=== PATIENT | male | born 1945 | race Hispanic/Latino ===

== ENCOUNTER 2017-07-10 09:00 | Emergency (ER) | payer MEDICARE, MEDICAID | END 2017-07-10 09:51 | disposition home or self-care (01) | LOC: ERS 09:00 | DX: E11.9 Type 2 diabetes mellitus without complications (principal); I10 Essential (primary) hypertension; F32.9 Major depressive disorder, single episode, unspecified | CPT/HCPCS: 36416; 99283 ==

== ENCOUNTER 2018-07-24 14:32 | Outpatient (CLI) | payer MEDICARE, MEDICAID ==
--- NOTE | 2018-07-24 18:22 | RAD ---
LEFT KNEE RADIOGRAPHS FOUR VIEWS: 07/24/18 PROVIDED CLINICAL HISTORY: Osteoarthritis. FINDINGS: No comparisons. Tricompartmental osteophyte formation is noted with medial femorotibial and patellofemoral joint spac e narrowing. No evidence for fracture. Alignment appears anatomic. There is as somewhat poorly define d lucent focus involving the posterior aspect of the proximal fibular shaft. Vascular calcifications are seen. IMPRESSION: 1. Degenerative changes are seen involving the left knee. 2. Lucent focus involving the proximal fibula, incompletely characterized on the basis of this s tudy. Correlation with whole body bone scan recommended. POS: MARY
--- NOTE | 2018-07-24 19:20 | RAD ---
RIGHT KNEE RADIOGRAPHS FOUR VIEWS 07/24/18 PROVIDED CLINICAL HISTORY: Right knee pain. FINDINGS: No evidence for fracture or other acute osseous abnormality. Minimal osteophyte formation is seen. Al ignment appears anatomic. Joint spaces appear preserved. Vascular calcifications are noted. IMPRESSION: Minimal degenerative change. POS: MARY
== END 2018-07-24 14:33 | disposition home or self-care (01) ==
LOC: BICRAD 14:32
PROVIDERS: ATTEND Family Medicine
DX: M15.8 Other polyosteoarthritis (principal)

== ENCOUNTER 2019-02-22 10:55 | Outpatient (CLI) | payer MEDICARE, MEDICAID ==
--- NOTE | 2019-02-22 12:03 | RAD ---
2 views lumbar spine: 02/22/2019 COMPARISON: 01/03/2016 HISTORY: Degenerative joint disease FINDINGS: There is severe multilevel disc space narrowing throughout the lumbar spine with prominent right and left lateral osteophyte formation throughout the lumbar spine, most prominent at L3-4 and L2-3. The lateral exam demonstrates prominent multilevel facet hypertrophy throughout the lumbar spin e as well as multilevel prominent disc space narrowing, degenerative endplate change, and anterior osteophyte formation. No acute fracture is evident. IMPRESSION: Severe multilevel degenerative disc disease. No acute fracture.
--- NOTE | 2019-02-22 12:07 | RAD ---
2 views right hip: 02/22/2019 COMPARISON: None HISTORY: Degenerative joint disease, pain FINDINGS: There is severe degenerative change involving the right hip with complete loss of joint spa ce height as well as flattening and abnormal sclerosis of the femoral head. There is prominent subchondral geode formation involving the acetabular roof as well as the femoral head. No acute fract ure or dislocation. Vascular calcification noted within the medial proximal right thigh. IMPRESSION: Severe degenerative change involving the right hip.
--- NOTE | 2019-02-22 12:09 | RAD ---
2 views left hip: 02/22/2019 COMPARISON: None HISTORY: Degenerative joint disease, pain FINDINGS: There is prominent superior joint space narrowing with subchondral sclerosis of the acetabu lar roof. There is lateral acetabular osteophyte formation and lateral osteophyte formation of the femoral head. There is associated subchondral geode formation of the acetabular roof and the left fem oral head. No displaced fracture or evidence of dislocation is seen. IMPRESSION: Prominent degenerative joint disease of left hip. No acute fracture or dislocation.
== END 2019-02-22 10:56 | disposition home or self-care (01) ==
LOC: BICRAD 10:55
PROVIDERS: ATTEND Internal Medicine Nephrology
DX: M16.0 Bilateral primary osteoarthritis of hip (principal); M47.816 Spondylosis without myelopathy or radiculopathy, lumbar region; M51.36 Other intervertebral disc degeneration, lumbar region
CPT/HCPCS: 72100

== ENCOUNTER 2019-04-22 08:00 | Inpatient (IN) | payer MEDICARE, MEDICAID ==
[2019-04-22 08:31] VITALS: BMI 30.5
--- NOTE | 2019-04-29 08:18 | HP ---
HISTORY OF PRESENT ILLNESS: The patient is a 73-year-old male with a long history of progressive degenerative arthritis of both hips, right greater than left, which became worse over the past several years, especially the past 3 months. He has had progressive pain despite rest, restriction of activities, and pain medication. The pain is now interfering with day-to-day activities including walking, getting dressed, and sleeping. He has had no relief with Aleve and Tylenol. PAST MEDICAL HISTORY: The patient has history of hypertension and diabetes. Also has degenerative arthritis of his left knee and lumbar spine. He has had a previous umbilical hernia repair. He is followed by Dr. Yong Linda. CURRENT MEDICATIONS: Include; 1. Janumet. 2. Lisinopril. 3. Flomax. 4. Finasteride. ALLERGIES: HE HAS NO KNOWN ALLERGIES. FAMILY HISTORY: Otherwise, unremarkable. SOCIAL HISTORY: He does live by himself. Otherwise, unremarkable. REVIEW OF SYSTEMS: Otherwise, unremarkable. PHYSICAL EXAMINATION: GENERAL: Reveals a healthy male. HEENT: Unremarkable. NECK: Supple. CHEST: Clear. HEART: Regular rate and rhythm. ABDOMEN: Soft and nontender. RECTAL: Deferred. GENITAL: Deferred. EXTREMITIES: Pertinent findings related to his hips. His leg lengths are equal. There is tenderness on the anterior hip, the right greater than left. Antalgic gait. There is decreased range of motion of both hips and groin pain with internal rotation, right greater than left. Neurovascular exam is intact. There are no definite pulses. He has good capillary refills. DIAGNOSTIC STUDIES: X-rays of this of both hips reveals severe degenerative arthritis of both hips, right greater than left with no joint space remaining. X-rays of his lumbar spine reveal diffuse degenerative changes. X-rays of his left knee reveal severe degenerative arthritis. IMPRESSION: 1. Degenerative arthritis, both hips, right greater than left. 2. Lumbar spondylosis. 3. Degenerative arthritis, left knee. 4. Adult-onset diabetes. 5. Hypertension. PLAN: Right total hip replacement. The nature of the surgery, length of recovery, and potential complications such as infection, loss of motion, incomplete relief, neurovascular injury, thromboembolic phenomena, leg-length discrepancy, possible transfusion, and need for revision have been discussed in detail. Job ID: [id number]
[2019-05-03] MEDS ORDERED: Sodium Chloride 0.9% 100 ML ONE (05:58)
[2019-05-03] MEDS ORDERED: Tranexamic Acid 1,000 MG/10 ML VIAL ONE ×2 (05:58→09:16)
[2019-05-03] MEDS ORDERED: Vancomycin HCl 1.5 GM in Sodium Chloride 0.9% 250 ML 300 ML IVPB SCH ×2 (06:15→18:00)
[2019-05-03] MEDS ORDERED: Fentanyl 100 MCG/2 ML VIAL ONE (06:56)
[2019-05-03] MEDS ORDERED: traMADol HCl 50 MG TAB PO PRN ×3 (07:00→09:15)
[2019-05-03] MEDS ORDERED: Naloxone HCl 0.4 mg/ml Vial IV PRN (07:00)
[2019-05-03] MEDS ORDERED: diphenhydrAMINE 50 MG/ML VIAL IM PRN (07:00)
[2019-05-03] MEDS ORDERED: Bupivacaine 0.25% 10 ML VIAL EPIDURAL PRN (07:00)
[2019-05-03] MEDS ORDERED: Zolpidem Tartrate 5 MG TAB PO PRN ×2 (07:00→09:15)
[2019-05-03] MEDS ORDERED: Promethazine HCl 25 MG SUPP PR PRN (07:00)
[2019-05-03] MEDS ORDERED: HYDROcodone/Acetaminophen 5/325 mg Tablet PO PRN (07:00)
[2019-05-03] MEDS ORDERED: diphenhydrAMINE 25 MG CAP PO PRN ×2 (07:00→09:15)
[2019-05-03] MEDS ORDERED: diphenhydrAMINE 50 MG/ML VIAL IVP PRN (07:00)
[2019-05-03] MEDS ORDERED: Ondansetron PF 4 MG/2 ML Vial IVP PRN ×2 (07:00→09:15)
[2019-05-03] MEDS ORDERED: Naloxone HCl 0.4 mg/ml Vial IVP PRN (07:00)
[2019-05-03] MEDS ORDERED: Hydrocerin (Eucerin) Cream 120 gm Jar TOP PRN (07:00)
[2019-05-03] MEDS ORDERED: Promethazine HCl 25 MG/ML VIAL IM PRN (07:00)
[2019-05-03] MEDS ORDERED: Ropivacaine 0.2% HCl/PF 20 ML ONE (07:04)
[2019-05-03] MEDS ORDERED: Acetaminophen/Codeine 30-300mg Tablet PO PRN ×2 (09:15)
[2019-05-03] MEDS ORDERED: Acetaminophen 325 MG TAB PO PRN ×2 (09:15→18:38)
[2019-05-03] MEDS ORDERED: Tranexamic Acid 1,000 MG in Sodium Chloride 0.9% 100 ML IVPB SCH (09:15)
[2019-05-03] MEDS ORDERED: Promethazine HCl 25 MG/ML VIAL SLOW IVP PRN (09:15)
[2019-05-03] MEDS ORDERED: Fentanyl 100 MCG/2 ML VIAL SLOW IVP PRN ×2 (09:15)
--- NOTE | 2019-05-03 10:10 | RAD ---
2 VIEWS RIGHT HIP: Date: 05/03/19 COMPARISON: 02/22/19. HISTORY: Status post right hip arthroplasty. FINDINGS: 2 views of the right hip show the patient to be status post right hip arthroplasty without perihardwa re lucency or fracture. Air in the soft tissues and overlying soft tissue swelling are from recent cummings rgery. IMPRESSION: Status post right hip arthroplasty without evidence of complication. POS: TPC
[2019-05-03] MEDS: Sodium Chloride 0.9% 1,000 ML IV SCH ×2 (11:29→15:55)
[2019-05-03] MEDS ORDERED: Dextrose 50% Abboject 50 ML SYRINGE SLOW IVP PRN (12:19)
[2019-05-03] MEDS ORDERED: Dextrose 5% in Water 1,000 ML IV PRN (12:19)
[2019-05-03] MEDS ORDERED: Insulin Regular 300 UNITS/3 ML VIAL SC PRN (12:19)
--- NOTE | 2019-05-03 12:25 | PDOC.HOSPP ---
- Subjective Encounter Date: 05/03/19 Encounter Time: 12:22 Subjective: Patient seen and examined for med mngt. No CP. Started Ambulating in hallways with PT. No new complaints. - Objective Vital Signs & Weight: Weight Weight 201 lb Additional Labs: Accuchecks 05/03/19 06:27 POC Glucose 141 H Laboratory Tests 04/08/19 04/22/19 09:23 10:22 Sodium 137 Potassium 4.4 Creatinine 1.45 H Hemoglobin A1c 7.1 H EKG Reviewed by me: Yes (SR) Hospitalist ROS - Review of Systems Respiratory: denies: cough, dry, shortness of breath, hemoptysis, SOB with excertion, pleuritic pain, sputum, wheezing, other Cardiovascular: denies: chest pain, palpitations, orthopnea, paroxysmal noc. dyspnea, edema, light headedness, other Gastrointestinal: denies: nausea, vomiting, abdominal pain, diarrhea, constipation, melena, hematochezia, other - Medication Medications: Active Medications Generic Name Dose Route Start Last Admin Trade Name Freq PRN Reason Stop Dose Admin Sodium Chloride 1,000 mls @ 100 mls/hr 05/03/19 09:15 05/03/19 11:29 Normal Saline 0.9% IV Not Given .Q10H HERSON - Exam General Appearance: NAD Neck: supple, no JVD Heart: RRR, no gallops, murmur present (2/6 LLSB) Respiratory: CTAB, no rales Gastrointestinal: soft, non-tender, non-distended, normal bowel sounds Extremities: no edema Hosp A/P - Plan plan discussed w/ family, PT/OT, DVT proph w/SCDs DM2 CKD 3 BPH HTN DJD Obesity BMI 30.6 PLAN: Add low dose sliding scale Cont Janumet Cont Lisinopril Cont Flomax/Finasteride Full code. DPOA - self/family
--- NOTE | 2019-05-03 12:46 | OP ---
DATE OF PROCEDURE: 05/03/2019 [employer] RANGER: Georgia Stewart PA-C ANESTHESIA: General plus epidural. PREOPERATIVE DIAGNOSIS: Degenerative arthritis, right hip. POSTOPERATIVE DIAGNOSIS: Degenerative arthritis, right hip. PROCEDURE PERFORMED: Right total hip replacement with uncemented [place] Trident PSL acetabular component, 58 mm with X3 polyethylene liner and uncemented Accolade II femoral stem #4, 132-degree angle trunnion and -5 mm neck length and 36 mm metal head. DESCRIPTION OF PROCEDURE: After satisfactory anesthesia was induced in supine position, sequential compression device was placed on the nonoperative leg throughout the procedure. The patient was then placed in the lateral decubitus position, and this position was held with a arredondo bag. The patient's right hip was then prepped and draped in routine sterile fashion. Hip was approached through a lateral curvilinear incision, centered over the greater trochanter, carried down through subcutaneous tissues, and bleeding points were controlled with Bovie cautery. IT band and gluteal fascia were split in line with skin incision. A direct lateral approach to the hip joint was accomplished by dividing the anterior third of the gluteus minimus tendons with the Bovie cautery and reflecting this as a single flap anteriorly and medially along with the vastus lateralis. Anterior capsulectomy was performed and the hip was dislocated anteriorly. There was marked degenerative arthritis of the hip with the marked degenerative changes of both acetabular and femoral head. Femoral neck was osteotomized with oscillating saw using a trial prosthesis as a guide. The acetabulum was exposed and cleaned of all soft tissue debris and rim osteophytes. The acetabulum was then reamed down to bleeding subchondral bone, total of 58 mm. It was felt that a 58 mm Trident PSL acetabular component placed in a press-fit fashion. I elected to put some morcellized bone graft obtained from remainder of head in depths of acetabulum because of some slight protrusio. The bone graft was placed and then the permanent 58 mm Trident PSL outer shell was then hammered in position. There was good fit stability of the shell and the permanent X3 polyethylene liner was then snapped in position. The proximal femur was exposed. It was opened with a box osteotome and then rasped in sequence to accept a #4 Accolade femoral rasp. Trial reduction with a 132-degree neck angle trunnion and -5 mm and 36 mm head gave appropriate size, fit, and stability. The hip was again dislocated and the trial components were removed. The wound was thoroughly irrigated. The permanent #4 Accolade II femoral stem was then hammered in position. There was again good fit and stability of the component. The permanent 36 mm, -5 mm neck length metal head was then placed on the trunnion. Hip again reduced and found to be stable. The wound was copiously irrigated with pulsatile lavage. The abductors were repaired with interrupted #2 Vicryl. The IT band and gluteal fascia were closed with interrupted #2 Vicryl and a running #2 Quill. Subcutaneous tissues were closed with a running 0 Quill suture and the skin was closed with running subcuticular 3-0 Monoderm and SurgiSeal skin adhesive. Sterile dressing was applied. The patient was turned to the supine position and a pillow placed between the legs. Sequential compression device was applied to the operated leg, and he was awakened, taken to recovery room in stable condition. There were no apparent intraoperative complications. The estimated blood loss was 350 mL. Job ID: [id number]
[2019-05-03] MEDS: Insulin Regular 300 UNITS/3 ML VIAL SC PRN ×2 (12:58→16:07)
[2019-05-03] MEDS ORDERED: Rocuronium Bromide 10 MG/ML (10ML VIAL) ONE (15:28)
[2019-05-03] MEDS ORDERED: PROPOFOL 200 MG/20 ML VIAL ONE (15:28)
[2019-05-03] MEDS ORDERED: ePHEDrine 50 MG/ML VIAL ONE (15:28)
[2019-05-03] MEDS ORDERED: PHENYLEPHRINE-NS 100 MCG/ML 10 ML SYRINGE ONE (15:28)
[2019-05-03] MEDS ORDERED: Ondansetron PF 4 MG/2 ML Vial ONE (15:28)
[2019-05-03] MEDS: CEFAZOLIN 2 GM in Premix Bag 1 BAG IVPB SCH ×2 (15:54→23:54)
[2019-05-03] MEDS ORDERED: Lisinopril 20 MG TAB PO SCH (16:45)
[2019-05-03] MEDS: Aspirin 81 mg Enteric Coated Tablet PO SCH (20:57)
[2019-05-03] MEDS: metFORMIN 500 MG TAB PO SCH (20:57)
[2019-05-03] MEDS: Alogliptin 25 MG TAB PO SCH (20:57)
[2019-05-03] MEDS ORDERED: Alogliptin 6.25 MG TAB PO SCH (21:00)
[2019-05-03] MEDS: Fentanyl 5 mcg/Bup 0.075% Cadd 100 ML EPIDURAL SCH (23:58)
[2019-05-04] MEDS: HYDROcodone/Acetaminophen 5/325 mg Tablet PO PRN ×4 (03:03→19:20)
[2019-05-04] MEDS: Sodium Chloride 0.9% 1,000 ML IV SCH ×2 (04:44→17:10)
[2019-05-04 04:49] LABS: Mean Corpuscular HGB CONC 34.3 g/dL (32.0-36.0); Mean Corpuscular Hemoglobin 31.8 pg (27.0-31.0); Mean Corpuscular Volume 92.7 fL (78.0-98.0); Platelet Count 225 thou/uL (130-400); Red Blood Cell (RBC) Count 3.13 mill/uL (4.70-6.10); White Blood Cell (WBC) Count 13.9 thou/uL (4.8-10.8)
[2019-05-04] MEDS: Alogliptin 25 MG TAB PO SCH ×2 (08:37→20:41)
[2019-05-04] MEDS: Aspirin 81 mg Enteric Coated Tablet PO SCH ×2 (08:38→20:41)
[2019-05-04] MEDS: Tamsulosin HCl 0.4 MG CAP PO SCH (08:38)
[2019-05-04] MEDS: Ferrous Gluconate 324 MG TAB PO SCH ×2 (08:39→20:41)
[2019-05-04] MEDS: Senokot S 8.6-50 MG TAB PO SCH ×2 (08:39→20:41)
[2019-05-04] MEDS: metFORMIN 500 MG TAB PO SCH ×2 (08:39→20:42)
[2019-05-04] MEDS: Finasteride 5 MG TAB PO SCH (08:39)
[2019-05-04] MEDS: Multivitamin W/ Minerals 1 TAB PO SCH (08:40)
[2019-05-04] MEDS: Lisinopril 20 MG TAB PO SCH (08:40)
[2019-05-04] MEDS: Insulin Regular 300 UNITS/3 ML VIAL SC PRN (12:32)
--- NOTE | 2019-05-04 13:37 | PDOC.HOSPP ---
- Subjective Encounter Date: 05/04/19 Encounter Time: 13:35 Subjective: Patient seen and examined for med mngt. No new complaints. No overnight events - Objective Vital Signs & Weight: Vital Signs (12 hours) Temp Pulse Resp BP BP Pulse Ox 05/04/19 08:40 129/69 05/04/19 08:00 95 05/04/19 07:40 99 F 107 H 14 124/69 95 Weight Admit Weight 201 lb Weight 201 lb I&O: 05/03/19 05/04/19 05/05/19 06:59 06:59 06:59 Intake Total 2900 Output Total 1225 Balance 1675 Result Diagrams: 05/04/19 04:34 Additional Labs: Accuchecks 05/04/19 05/04/19 05/03/19 11:25 06:25 21:06 POC Glucose 210 H 151 H 201 H 05/03/19 16:03 POC Glucose 235 H Hospitalist ROS - Review of Systems Cardiovascular: denies: chest pain, palpitations, orthopnea, paroxysmal noc. dyspnea, edema, light headedness, other Gastrointestinal: denies: nausea, vomiting, abdominal pain, diarrhea, constipation, melena, hematochezia, other - Medication Medications: Active Medications Generic Name Dose Route Start Last Admin Trade Name Freq PRN Reason Stop Dose Admin Acetaminophen 650 mg 05/03/19 18:38 05/03/19 19:20 Tylenol PO 650 mg Q4H PRN Administration Mild Pain (1-3) Hydrocodone Bitart/Acetaminophen 2 tab 05/03/19 07:00 05/04/19 12:38 [place] 5/325 PO 2 tab Q4H PRN Administration For Moderate Pain 4-6 Alogliptin Benzoate 12.5 mg 05/03/19 21:00 05/04/19 08:37 Alogliptin PO 12.5 mg BID HERSON Administration Aspirin 81 mg 05/03/19 21:00 05/04/19 08:38 Ecotrin PO 81 mg BID HERSON Administration Ferrous Gluconate 324 mg 05/04/19 09:00 05/04/19 08:39 Fergon PO 324 mg BID HERSON Administration Finasteride 5 mg 05/04/19 09:00 05/04/19 08:39 Proscar PO 5 mg DAILY HERSON Administration Fentanyl Citrate 100 mls @ 0 mls/hr 05/03/19 07:00 05/03/19 23:58 Fentanyl/Bupivacaine EPIDURAL 100 mls INF HERSON Administration As Directed Sodium Chloride 1,000 mls @ 100 mls/hr 05/03/19 09:15 05/04/19 04:44 Normal Saline 0.9% IV Not Given .Q10H HERSON Insulin Human Regular 0 units 05/03/19 12:19 05/04/19 12:32 Humulin R SC 3 unit .MILD SLIDING SCALE PRN Administration Mild Correctional Scale Insulin Human Regular 0 units 05/03/19 12:19 05/03/19 21:06 Humulin R SC 2 unit .BEDTIME SLIDING SC PRN Administration Bedtime Correctional Scale Iron/Minerals/Multivitamins 1 tab 05/04/19 09:00 05/04/19 08:40 Theragran M PO 1 tab DAILY HERSON Administration Lisinopril 20 mg 05/04/19 09:00 05/04/19 08:40 Zestril PO 20 mg DAILY HERSON Administration Metformin HCl 500 mg 05/03/19 21:00 05/04/19 08:39 Glucophage PO 500 mg BID HERSON Administration Senna/Docusate Sodium 2 tab 05/04/19 09:00 05/04/19 08:39 Senokot S PO 2 tab BID HERSON Administration Tamsulosin HCl 0.4 mg 05/04/19 09:00 05/04/19 08:38 Flomax PO 0.4 mg DAILY HERSON Administration - Exam General Appearance: NAD Heart: RRR, no gallops Respiratory: CTAB, no rales Gastrointestinal: soft, non-tender, normal bowel sounds Gastrointestinal - other findings: gupta + Extremities: no edema Psychiatric: A&O x 3 Hosp A/P - Plan DVT proph w/SCDs HTN DM2 CKD 3 BPH Obesity BMI 30.6 DJD PLAN: Cont low dose sliding scale with Janumet Cont Lisinopril Cont Flomax/Finasteride
[2019-05-04] MEDS: Fentanyl 5 mcg/Bup 0.075% Cadd 100 ML EPIDURAL SCH (17:02)
[2019-05-05] MEDS: Sodium Chloride 0.9% 1,000 ML IV SCH ×2 (01:15→13:29)
[2019-05-05] MEDS: HYDROcodone/Acetaminophen 5/325 mg Tablet PO PRN ×3 (05:01→13:27)
[2019-05-05] MEDS: Insulin Regular 300 UNITS/3 ML VIAL SC PRN ×2 (06:29→11:52)
[2019-05-05] MEDS: Aspirin 81 mg Enteric Coated Tablet PO SCH (09:40)
[2019-05-05] MEDS: Alogliptin 25 MG TAB PO SCH (09:40)
[2019-05-05] MEDS: Tamsulosin HCl 0.4 MG CAP PO SCH (09:41)
[2019-05-05] MEDS: Ferrous Gluconate 324 MG TAB PO SCH (09:41)
[2019-05-05] MEDS: Multivitamin W/ Minerals 1 TAB PO SCH (09:42)
[2019-05-05] MEDS: Finasteride 5 MG TAB PO SCH (09:42)
[2019-05-05] MEDS: Lisinopril 20 MG TAB PO SCH (09:42)
[2019-05-05] MEDS: Senokot S 8.6-50 MG TAB PO SCH (09:42)
[2019-05-05] MEDS: metFORMIN 500 MG TAB PO SCH (09:42)
[2019-05-05 12:48] VITALS: BP 158/85; TEMP 98.7
--- NOTE | 2019-05-05 23:05 | PDOC.HOSPP ---
- Subjective Encounter Date: 05/05/19 Encounter Time: 09:00 Subjective: Patient seen and examined for medical mngt. No CP or SOB. No new complaints. No overnight events - Objective Vital Signs & Weight: Vital Signs (12 hours) Temp Pulse Resp BP Pulse Ox 05/05/19 11:13 98.7 F 103 H 18 158/85 H 95 05/05/19 11:10 98.7 F 103 H 18 158/85 H 95 Weight Admit Weight 201 lb Weight 201 lb I&O: 05/04/19 05/05/19 05/06/19 06:59 06:59 06:59 Intake Total 2900 1840 960 Output Total 1225 1675 450 Balance 1675 165 510 Result Diagrams: 05/04/19 04:34 Additional Labs: Accuchecks 05/05/19 05/05/19 11:47 05:15 POC Glucose 216 H 168 H Hospitalist ROS - Review of Systems Respiratory: denies: cough, dry, shortness of breath, hemoptysis, SOB with excertion, pleuritic pain, sputum, wheezing, other - Exam General Appearance: NAD Heart: RRR, no rubs Respiratory: CTAB, no rales Hosp A/P - Plan DVT proph w/SCDs DM2 HTN CKD 3 BPH Obesity BMI 30.6 DJD PLAN: Cont sliding scale Cont Janumet Cont Lisinopril/Flomax/Finasteride
== END 2019-05-05 16:15 | disposition home or self-care (01) | DRG 470 ==
LOC: SJJU 05-03 05:45
PROVIDERS: ADMIT Orthopaedic Surgery; ATTEND Orthopaedic Surgery
PROC: 0SR902A Replacement of Right Hip Joint with Metal on Polyethylene Synthetic Substitute, Uncemented, Open Approach (ICD-10-PCS; principal; 2019-05-03)
DX: M16.0 Bilateral primary osteoarthritis of hip (principal); M47.896 Other spondylosis, lumbar region; I12.9 Hypertensive chronic kidney disease with stage 1 through stage 4 chronic kidney disease, or unspecified chronic kidney disease; N40.0 Benign prostatic hyperplasia without lower urinary tract symptoms; E11.22 Type 2 diabetes mellitus with diabetic chronic kidney disease; E66.9 Obesity, unspecified; N18.3 Chronic kidney disease, stage 3 (moderate); Z79.4 Long term (current) use of insulin; Z68.30 Body mass index [BMI] 30.0-30.9, adult; M17.12 Unilateral primary osteoarthritis, left knee
CPT/HCPCS: 36415; 36416; 85027; 86850; 86900; 86901; C1776; J0690; J1815; J2795; J3010; J3370; J3490; J7050

== ENCOUNTER 2019-04-22 08:08 | Outpatient (CLI) | payer MEDICARE, MEDICAID ==
[2019-04-22 10:42] LABS: #Basophils 0.1 thou/uL (0.0-0.2); #Eosinphils 0.2 thou/uL (0.0-0.7); #Lymphocytes 2.4 thou/uL (1.20-3.40); #Monocytes 0.8 thou/uL (0.11-0.59); #Neutrophils 10.3 thou/uL (1.40-6.50); %Basophils 0.4 % (0.0-1.0); %Eosinophils 1.4 % (0.0-10.0); %Lymphocytes 17.5 % (21.0-51.0); %Monocytes 5.7 % (0.0-10.0); %Neutrophils 75.1 % (42.0-75.0); Hemoglobin 13.6 g/dL (14.0-18.0); Mean Corpuscular HGB CONC 33.8 g/dL (32.0-36.0); Mean Corpuscular Hemoglobin 31.5 pg (27.0-31.0); Mean Corpuscular Volume 93.2 fL (78.0-98.0); Mean Platelet Volume 7.8 fL (7.4-10.4); Platelet Count 290 thou/uL (130-400); RBC Distribution Width 12.4 % (11.5-14.5); Red Blood Cell (RBC) Count 4.32 mill/uL (4.70-6.10); White Blood Cell (WBC) Count 13.7 thou/uL (4.8-10.8)
[2019-04-22 10:48] LABS: Prothrombin Time 13.2 SEC (12.0-14.7)
[2019-04-22 10:49] LABS: PTT 38.4 SEC (22.9-36.1)
[2019-04-22 10:56] LABS: Bacteria/HPF None Seen HPF (None Seen); Bilirubin Negative (Negative); Blood, Urine Negative (Negative); Clarity Clear (Clear); Glucose, Urine (Dipstick) Normal (Negative); Leukocyte Negative Leu/uL (Negative); Nitrite Negative (Negative); Protein, Urine (Dipstick) 70 mg/dL (Neg-Trace); RBC/HPF 0-3 HPF (0-3); Squamous Epithelial 0-3 HPF (0-3); Urobilinogen Normal mg/dL (Less than 2); WBC/HPF 0-3 HPF (0-3)
[2019-04-22 11:02] LABS: Anion Gap 14 mmol/L (10-20); BUN (Urea Nitrogen) 19 mg/dL (8.4-25.7); Calc. Creatinine Clearance 0 mL/min (70-130); Calcium 9.5 mg/dL (7.8-10.44); Carbon Dioxide 20 mmol/L (23-31); Chloride 107 mmol/L (98-107); Estimated GFR-MDRD 48; Glucose 169 mg/dL (83-110); Potassium 4.4 mmol/L (3.5-5.1); Sodium 137 mmol/L (136-145)
--- NOTE | 2019-04-26 23:00 | EKG ---
Test Reason : Blood Pressure : / mmHG Vent. Rate : 064 BPM Atrial Rate : 064 BPM P-R Int : 220 ms QRS Dur : 104 ms QT Int : 388 ms P-R-T Axes : 025 084 072 degrees QTc Int : 400 ms Sinus rhythm with 1st degree A-V block Otherwise normal ECG Confirmed by COOPER MGCRAW M.D. ([id number] on 04/26/2019 11:00:16 PM Referred By: VICTOR MANUEL Confirmed By:COOPER MCGRAW M.D.
== END 2019-04-22 08:09 | disposition home or self-care (01) ==
LOC: LABBT 08:08
PROVIDERS: ATTEND Orthopaedic Surgery
DX: Z01.818 Encounter for other preprocedural examination (principal); M16.11 Unilateral primary osteoarthritis, right hip
CPT/HCPCS: 80048; 81001; 85025; 85610; 85730; 87081; 93005; 93010

== ENCOUNTER 2019-05-09 18:13 | Observation (INO) | payer MEDICARE, MEDICAID ==
[~2019-05-09 18:13] MED LIST: Iopamidol 370 76% 100 ML VIAL ONE
[2019-05-09 19:02] LABS: #Eosinphils 0.2 thou/uL (0.0-0.7); #Lymphocytes 2.2 thou/uL (1.20-3.40); #Monocytes 1.1 thou/uL (0.11-0.59); #Neutrophils 8.4 thou/uL (1.40-6.50); %Basophils 0.4 % (0.0-1.0); %Eosinophils 1.5 % (0.0-10.0); %Lymphocytes 18.4 % (21.0-51.0); %Neutrophils 70.8 % (42.0-75.0); Hemoglobin 9.6 g/dL (14.0-18.0); Mean Corpuscular HGB CONC 33.5 g/dL (32.0-36.0); Mean Corpuscular Hemoglobin 31.1 pg (27.0-31.0); Mean Corpuscular Volume 93.1 fL (78.0-98.0); Mean Platelet Volume 6.6 fL (7.4-10.4); Platelet Count 412 thou/uL (130-400); RBC Distribution Width 11.8 % (11.5-14.5); Red Blood Cell (RBC) Count 3.09 mill/uL (4.70-6.10); White Blood Cell (WBC) Count 11.8 thou/uL (4.8-10.8)
[2019-05-09 19:30] LABS: ALT (SGPT) 54 U/L (8-55); AST (SGOT) 88 U/L (5-34); Albumin 3.6 g/dL (3.4-4.8); Alkaline Phosphatase 110 U/L (40-110); Anion Gap 14 mmol/L (10-20); BUN (Urea Nitrogen) 24 mg/dL (8.4-25.7); Bilirubin, Total 0.4 mg/dL (0.2-1.2); Calc. Creatinine Clearance 0 mL/min (70-130); Calcium 9.3 mg/dL (7.8-10.44); Carbon Dioxide 22 mmol/L (23-31); Chloride 103 mmol/L (98-107); Estimated GFR-MDRD 44; Globulin 3.7 g/dL (2.4-3.5); Glucose 248 mg/dL (83-110); Potassium 5.4 mmol/L (3.5-5.1); Protein, Total 7.3 g/dL (5.8-8.1); Sodium 134 mmol/L (136-145)
[2019-05-09 19:51] LABS: CK (CPK) 206 U/L (30-200)
--- NOTE | 2019-05-09 21:11 | ULT ---
Bilateral lower extremity venous Doppler exam: HISTORY: Leg pain and swelling. Postop. COMPARISON: None. FINDINGS: Real-time color Doppler evaluation of the right and left lower extremities were performed f rom groin to calf. This includes evaluation the common femoral superficial profundofemoral saphenous, popliteal and posterior tibial veins. On the right side there is a area of nonocclusive mural thrombus in the proximal superficial femoral vein measuring 1.5 cm in maximum size. There is otherwise a normal deep venous system with normal compressibility and augmentation. On the left side there is a patent deep venous system with normal compressibility and augmentation. IMPRESSION: Small focus of DVT within the proximal superficial femoral vein within the proximal right thigh.
--- NOTE | 2019-05-09 21:18 | RAD ---
XR Chest 1 View Portable HISTORY: Dyspnea COMPARISON: 09/20/2016 study. FINDINGS: Heart size and mediastinum are within normal limits for portable technique. There is slight elevation the right hemidiaphragm. There is minimal linear scarring in the left base. IMPRESSION: No active intrathoracic disease.
--- NOTE | 2019-05-09 21:20 | CT ---
CTA Angio Chest W WO Con HISTORY: Postop hip replacement. Dyspnea. COMPARISON: Chest x-ray done today. FINDINGS: The lungs are clear of infiltrative process. There is some linear scarring in the right jayshree g base. There is no significant mediastinal or hilar lymphadenopathy. Small hiatal hernia is present. The thoracic aorta is normal in caliber. There is fair pulmonary artery opacification obtained. No CT evidence for pulmonary embolus. Smaller peripheral emboli are not excluded. Visualized liver parenchyma shows no focal findings. IMPRESSION: No CT evidence for pulmonary embolus.
[2019-05-09] MEDS ORDERED: Enoxaparin Sodium 100 MG/ML SYRINGE ONE (21:57)
[2019-05-09] MEDS ORDERED: traMADol HCl 50 MG TAB ONE (21:59)
[2019-05-09] MEDS ORDERED: Sodium Chloride 0.9% 1,000 ML IV SCH (23:45)
[2019-05-10] MEDS ORDERED: Sodium Chloride 0.9% 1,000 ML IV SCH (00:45)
[2019-05-10 01:21] VITALS: BMI 34.4
[2019-05-10] MEDS ORDERED: traMADol HCl 50 MG TAB PO PRN (03:16)
[2019-05-10] MEDS ORDERED: Acetaminophen 500 MG TAB PO PRN (03:16)
[2019-05-10] MEDS ORDERED: Dextrose 5% in Water 1,000 ML IV PRN (03:16)
[2019-05-10] MEDS ORDERED: HYDROcodone/Acetaminophen 5/325 mg Tablet PO PRN ×3 (03:16)
[2019-05-10] MEDS ORDERED: Dextrose 50% Abboject 50 ML SYRINGE SLOW IVP PRN (03:16)
[2019-05-10] MEDS ORDERED: hydrALAZINE 20 MG/ML VIAL SLOW IVP PRN (03:16)
[2019-05-10] MEDS ORDERED: HumaLOG 300 UNITS/3 ML VIAL SC PRN (03:16)
[2019-05-10] MEDS: Sodium Chloride 0.9% 1,000 ML IV SCH ×2 (04:40→13:50)
[2019-05-10] MEDS: HumaLOG 300 UNITS/3 ML VIAL SC PRN ×2 (05:47→17:23)
[2019-05-10 06:37] LABS: #Basophils 0.1 thou/uL (0.0-0.2); #Eosinphils 0.2 thou/uL (0.0-0.7); #Lymphocytes 2.2 thou/uL (1.20-3.40); #Neutrophils 7.5 thou/uL (1.40-6.50); %Basophils 0.5 % (0.0-1.0); %Eosinophils 1.6 % (0.0-10.0); %Lymphocytes 20.2 % (21.0-51.0); %Monocytes 9.1 % (0.0-10.0); %Neutrophils 68.6 % (42.0-75.0); Hemoglobin 8.8 g/dL (14.0-18.0); Mean Corpuscular HGB CONC 33.5 g/dL (32.0-36.0); Mean Corpuscular Hemoglobin 31.2 pg (27.0-31.0); Mean Corpuscular Volume 92.9 fL (78.0-98.0); Mean Platelet Volume 7.1 fL (7.4-10.4); Platelet Count 399 thou/uL (130-400); RBC Distribution Width 11.7 % (11.5-14.5); Red Blood Cell (RBC) Count 2.82 mill/uL (4.70-6.10); White Blood Cell (WBC) Count 10.8 thou/uL (4.8-10.8)
[2019-05-10 06:47] LABS: Anion Gap 13 mmol/L (10-20); BUN (Urea Nitrogen) 20 mg/dL (8.4-25.7); Calc. Creatinine Clearance 68 mL/min (70-130); Calcium 8.8 mg/dL (7.8-10.44); Carbon Dioxide 22 mmol/L (23-31); Chloride 105 mmol/L (98-107); Estimated GFR-MDRD 50; Glucose 213 mg/dL (83-110); Potassium 4.8 mmol/L (3.5-5.1); Sodium 135 mmol/L (136-145)
--- NOTE | 2019-05-10 07:43 | HP ---
PRIMARY CARE PROVIDER: Dr. Yong Linda. CHIEF COMPLAINT: Shortness of breath and right lower extremity swelling. HISTORY OF PRESENT ILLNESS: This is a 73-year-old male, who presents to [facility] Emergency Department complaining of increased shortness of breath status post right total hip arthroplasty on 05/03/2019. The patient noted increased swelling of the right lower extremity with some tenderness to palpation of the thigh. The patient also admitted to increased shortness of breath and was unable to lie flat at home, needing a recliner to sleep. The patient states he has been compliant with his chronic medication regimen, but denied fall or injury. The patient states he has started slow physical therapy to the right hip at his home. The patient admitted to mild chills, but no specific documented fever. The patient denied any hemoptysis, chest pain, abdominal discomfort, nausea, vomiting, or diarrhea. In the emergency room, the patient underwent general evaluation including right lower extremity venous Doppler study showing evidence of thrombus in the right proximal superficial femoral vein. The patient received Lovenox 1 mg/kg in the emergency room in addition to Ultram and intravenous normal saline. PAST MEDICAL HISTORY: 1. Diabetes mellitus type 2. 2. Hypertension. 3. Osteoarthritis. PAST SURGICAL HISTORY: 1. Status post hernia repair. 2. Status post right total hip arthroplasty. PAST PSYCHIATRIC HISTORY: Positive for depression. CURRENT MEDICATIONS: 1. Proscar 5 mg p.o. daily. 2. Lisinopril 20 mg p.o. daily. 3. Janumet 50/500 mg 1 tablet p.o. b.i.d. 4. Flomax 0.4 mg p.o. daily. 5. Enteric-coated aspirin 81 mg p.o. b.i.d. 6. [place] 5/325 mg 1-2 tablets p.o. q.4 hours p.r.n. pain. ALLERGIES: NO KNOWN DRUG ALLERGIES. FAMILY HISTORY: Positive for diabetes mellitus and hypertension. SOCIAL HISTORY: He lives with family in the [facility] area. Ambulates with a rolling walker. No current alcohol, tobacco, or illicit drug use. Accompanied by his daughter in the hospital. REVIEW OF SYSTEMS: CONSTITUTIONAL: Negative for weight loss or gain, ability to conduct usual activities. SKIN: Negative for rash, itching. EYES: Negative for double vision, pain. ENT/MOUTH: Negative for nose bleeding, neck stiffness, pain, tenderness. CARDIOVASCULAR: Negative for palpitations, dyspnea on exertion, orthopnea. RESPIRATORY: Negative for shortness of breath, wheezing, cough, hemoptysis, fever or night sweats. GASTROINTESTINAL: Negative for poor appetite, abdominal pain, heartburn, nausea, vomiting, constipation, or diarrhea. GENITOURINARY: Negative for urgency, frequency, dysuria, nocturia. MUSCULOSKELETAL: Negative for pain, swelling. NEUROLOGIC/PSYCHIATRIC: Negative for anxiety, depression. ALLERGY/IMMUNOLOGIC: Negative for skin rash, bleeding tendency. Otherwise none negative except as stated per HPI. PHYSICAL EXAMINATION: VITAL SIGNS: On admission, blood pressure 144/65, pulse 93, respiratory rate 20, temperature 99.6 degrees Fahrenheit, O2 saturation 97% on room air. GENERAL APPEARANCE: This is a 73-year-old male, alert and oriented x3, pleasant, responsive, in no acute distress. HEENT: Pupils are equal, round, reactive to light and accommodation. Extraocular muscles are intact. No scleral icterus. No conjunctival injection. Nares are patent. OP is clear. Teeth in fair repair. NECK: Supple. No cervical adenopathy. No thyromegaly. No carotid bruits. No JVD appreciated. Cervical spine with full active and passive range of motion. No meningeal signs noted. CHEST: Lungs are clear to auscultation bilaterally. CARDIOVASCULAR EXAM: S1, S2 without noted murmur, rub, or gallop. ABDOMEN: Rounded, soft, nontender, and nondistended. Bowel sounds are positive in all 4 quadrants. There is no hepatosplenomegaly. No abdominal bruits, no rebound or guarding appreciated. EXTREMITIES: Right lower extremity with generalized edema with tenderness to palpation in the mid thigh region. Postsurgical changes noted of the proximal right thigh consistent with surgical history. Pulses palpable distally at the dorsalis pedis, posterior tibial, and popliteal arteries bilaterally. Capillary refill less than 2 seconds. NEUROLOGIC: Cranial nerves 2 through 12 are grossly intact. No focal or lateralizing signs appreciated. PERTINENT LABORATORY AND X-RAY FINDINGS: Portable chest x-ray dated 05/09/2019, showed no acute cardiopulmonary process. CT angiogram of the chest dated 05/09/2019, showed no evidence for pulmonary embolus. Venous Doppler study dated 05/09/2019, showed nonocclusive thrombus in the proximal right superficial femoral vein. ASSESSMENT/PLAN: 1. Right lower extremity venous thrombosis. The patient will be admitted to the medical floor. Continue anticoagulation with Lovenox 100 mg subcutaneously q.12 hours. Consider oral anticoagulation options. Pain control as clinically indicated. 2. Dyspnea. Exact etiology unclear. No current evidence to suggest acute pulmonary embolus. Continue oxygen p.r.n. 3. Diabetes mellitus type 2. Insulin sliding scale for reflexive coverage. Resume home diabetic regimen. ADA diet. Serial Accu-Cheks before meals and at bedtime. 4. Hypertension. Resume home antihypertensive regimen and monitor clinical response. 5. Prophylaxis. Sequential compression devices while in bed. Pepcid 20 mg p.o. b.i.d. PT evaluation in the a.m. CODE STATUS: Full. Surrogate medical decision maker is patient's daughter. Job ID: [id number]
[2019-05-10] MEDS: Alogliptin 6.25 MG TAB PO SCH ×2 (08:15→20:06)
[2019-05-10] MEDS: Finasteride 5 MG TAB PO SCH (08:15)
[2019-05-10] MEDS: metFORMIN 500 MG TAB PO SCH ×2 (08:15→20:06)
[2019-05-10] MEDS: Lisinopril 20 MG TAB PO SCH (08:15)
[2019-05-10] MEDS: Famotidine 20 MG TAB PO SCH (08:15)
[2019-05-10] MEDS: Aspirin 81 mg Enteric Coated Tablet PO SCH ×2 (08:15→20:06)
[2019-05-10] MEDS: Tamsulosin HCl 0.4 MG CAP PO SCH (08:16)
[2019-05-10] MEDS: Enoxaparin Sodium 100 MG/ML SYRINGE SC SCH ×2 (08:16→20:13)
[2019-05-10] MEDS ORDERED: Non-Formulary Item 1 EACH (Sitagliptin Phos/Metformin Hcl [Janumet] 1 TAB) PO SCH (09:00)
[2019-05-10] MEDS: HYDROcodone/Acetaminophen 10/325 mg Tablet PO PRN ×2 (13:22→20:07)
--- NOTE | 2019-05-10 17:26 | PDOC.HOSPP ---
- Subjective Encounter Date: 05/10/19 Encounter Time: 17:24 Subjective: Mr. Knapp was seen today in follow-up of DVT. He does not have any complaints. He denies chest pain or shortness of breath. - Objective Vital Signs & Weight: Vital Signs (12 hours) Temp Pulse Pulse Resp BP BP BP 05/10/19 11:43 97.8 F 69 20 171/71 H 05/10/19 09:51 76 173/66 H 05/10/19 08:15 162/82 H 05/10/19 07:23 97.7 F 81 20 162/82 H Pulse Ox Pulse Ox 05/10/19 11:43 95 05/10/19 09:51 98 05/10/19 08:15 05/10/19 07:23 94 L Weight Weight 226 lb 4.8 oz I&O: 05/09/19 05/10/19 05/11/19 06:59 06:59 06:59 Intake Total 798 800 Output Total 650 Balance 148 800 Result Diagrams: 05/10/19 05:38 05/10/19 05:38 Additional Labs: Accuchecks 05/10/19 05/10/19 12:15 05:08 POC Glucose 195 H 245 H Hospitalist ROS - Medication Medications: Active Medications Generic Name Dose Route Start Last Admin Trade Name Freq PRN Reason Stop Dose Admin Hydrocodone Bitart/Acetaminophen 1 tab 05/10/19 13:07 05/10/19 13:22 [place] 10/325 PO 1 tab Q4H PRN Administration Pain Alogliptin Benzoate 12.5 mg 05/10/19 09:00 05/10/19 08:15 Alogliptin PO 12.5 mg BID HERSON Administration Aspirin 81 mg 05/10/19 09:00 05/10/19 08:15 Ecotrin PO 81 mg BID HERSON Administration Enoxaparin Sodium 100 mg 05/10/19 09:00 05/10/19 08:16 Lovenox SC 100 mg 0900,2099 HERSON Administration Famotidine 20 mg 05/10/19 09:00 05/10/19 08:15 Pepcid PO 20 mg DAILY HERSON Administration Finasteride 5 mg 05/10/19 09:00 05/10/19 08:15 Proscar PO 5 mg DAILY HERSON Administration Sodium Chloride 1,000 mls @ 75 mls/hr 05/10/19 03:16 05/10/19 13:50 Normal Saline 0.9% IV 1,000 mls .[id number] HERSON Administration Insulin Human Lispro 0 units 05/10/19 03:16 05/10/19 05:47 Humalog SC 3 unit .MILD SLIDING SCALE PRN Administration Mild Correctional Scale Lisinopril 20 mg 05/10/19 09:00 05/10/19 08:15 Zestril PO 20 mg DAILY HERSON Administration Metformin HCl 500 mg 05/10/19 09:00 05/10/19 08:15 Glucophage PO 500 mg BID HERSON Administration Tamsulosin HCl 0.4 mg 05/10/19 09:00 05/10/19 08:16 Flomax PO 0.4 mg DAILY HERSON Administration - Exam Eye: PERRL, anicteric sclera Heart: RRR, no murmur, no gallops, no rubs Respiratory: CTAB, no wheezes, no rales, no ronchi, normal chest expansion, no tachypnea, normal percussion Gastrointestinal: soft, non-tender, non-distended, normal bowel sounds, no palpable masses, no hepatomegaly Extremities: no cyanosis, no clubbing, 2+ LE edema (+ edema extending into the thigh on the right leg) Hosp A/P (1) Right leg DVT Code(s): I82.401 - ACUTE EMBOLISM AND THOMBOS UNSP DEEP VEINS OF R LOW EXTREM Status: Acute (2) Diabetes mellitus type 2 in nonobese Code(s): E11.9 - TYPE 2 DIABETES MELLITUS WITHOUT COMPLICATIONS Status: Chronic (3) Hypertension Code(s): I10 - ESSENTIAL (PRIMARY) HYPERTENSION Status: Chronic - Plan * DVT- continue Lovenox, and will transition to Eliquis tomorrow * DM- blood glucose is stable * HTN- blood pressure is a bit elevated- will observe, marcelo need to titrate medications
[2019-05-11] MEDS: Sodium Chloride 0.9% 1,000 ML IV SCH (06:34)
[2019-05-11] MEDS: HumaLOG 300 UNITS/3 ML VIAL SC PRN (06:35)
[2019-05-11] MEDS: Aspirin 81 mg Enteric Coated Tablet PO SCH (07:58)
[2019-05-11] MEDS: Alogliptin 6.25 MG TAB PO SCH (07:58)
[2019-05-11] MEDS: Tamsulosin HCl 0.4 MG CAP PO SCH (07:59)
[2019-05-11] MEDS: Lisinopril 20 MG TAB PO SCH (07:59)
[2019-05-11] MEDS: metFORMIN 500 MG TAB PO SCH (07:59)
[2019-05-11] MEDS: Famotidine 20 MG TAB PO SCH (07:59)
[2019-05-11] MEDS: Finasteride 5 MG TAB PO SCH (07:59)
[2019-05-11] MEDS ORDERED: Apixaban 5 MG TAB PO SCH (09:00)
[2019-05-11] MEDS: HYDROcodone/Acetaminophen 10/325 mg Tablet PO PRN (13:01)
--- NOTE | 2019-05-11 15:11 | PDOC.HOSPP ---
- Subjective Encounter Date: 05/11/19 Encounter Time: 15:09 Subjective: Mr. Knapp was seen today in follow-up of DVT. He some pain, but otherwise no complaints - Objective Vital Signs & Weight: Vital Signs (12 hours) Temp Pulse Resp BP BP Pulse Ox 05/11/19 12:26 98.2 F 80 18 173/82 H 95 05/11/19 09:58 168/80 H 05/11/19 08:21 98.7 F 85 20 182/83 H 94 L 05/11/19 07:59 182/83 H 05/11/19 05:10 98.2 F 70 18 167/69 H 95 Weight Weight 226 lb 4.8 oz I&O: 05/10/19 05/11/19 05/12/19 06:59 06:59 06:59 Intake Total 798 4550 1200 Output Total 650 1250 Balance 148 3300 1200 Result Diagrams: 05/10/19 05:38 05/10/19 05:38 Additional Labs: Accuchecks 05/11/19 05/11/19 05/10/19 11:56 04:22 19:12 POC Glucose 163 H 194 H 169 H 05/10/19 17:05 POC Glucose 203 H Hospitalist ROS - Medication Medications: Active Medications Generic Name Dose Route Start Last Admin Trade Name Freq PRN Reason Stop Dose Admin Hydrocodone Bitart/Acetaminophen 1 tab 05/10/19 13:07 05/11/19 13:01 [place] 10/325 PO 1 tab Q4H PRN Administration Pain Alogliptin Benzoate 12.5 mg 05/10/19 09:00 05/11/19 07:58 Alogliptin PO 12.5 mg BID HERSON Administration Apixaban 10 mg 05/11/19 09:00 05/11/19 07:58 Eliquis PO 10 mg BID HERSON Administration Aspirin 81 mg 05/10/19 09:00 05/11/19 07:58 Ecotrin PO 81 mg BID HERSON Administration Famotidine 20 mg 05/10/19 09:00 05/11/19 07:59 Pepcid PO 20 mg DAILY HERSON Administration Finasteride 5 mg 05/10/19 09:00 05/11/19 07:59 Proscar PO 5 mg DAILY HERSON Administration Hydralazine HCl 10 mg 05/10/19 03:16 05/10/19 20:07 Apresoline SLOW IVP 10 mg Q4H PRN Administration SBP > 180 and HR < 70 Sodium Chloride 1,000 mls @ 75 mls/hr 05/10/19 03:16 05/11/19 06:34 Normal Saline 0.9% IV 1,000 mls .[id number] HERSON Administration Insulin Human Lispro 0 units 05/10/19 03:16 05/11/19 06:35 Humalog SC 2 unit .MILD SLIDING SCALE PRN Administration Mild Correctional Scale Lisinopril 20 mg 05/10/19 09:00 05/11/19 07:59 Zestril PO 20 mg DAILY HERSON Administration Metformin HCl 500 mg 05/10/19 09:00 05/11/19 07:59 Glucophage PO 500 mg BID HERSON Administration Tamsulosin HCl 0.4 mg 05/10/19 09:00 05/11/19 07:59 Flomax PO 0.4 mg DAILY HERSON Administration Tramadol HCl 50 mg 05/10/19 03:16 05/11/19 14:49 Ultram PO 50 mg Q6H PRN Administration Moderate Pain (4-6) - Exam Eye: PERRL Heart: RRR, no murmur, no gallops, no rubs, normal peripheral pulses Respiratory: CTAB, no wheezes, no rales, no ronchi, normal chest expansion, no tachypnea, normal percussion Gastrointestinal: soft, non-tender, non-distended, normal bowel sounds, no palpable masses, no hepatomegaly Extremities: 2+ LE edema Hosp A/P (1) Right leg DVT Code(s): I82.401 - ACUTE EMBOLISM AND THOMBOS UNSP DEEP VEINS OF R LOW EXTREM Status: Acute (2) Diabetes mellitus type 2 in nonobese Code(s): E11.9 - TYPE 2 DIABETES MELLITUS WITHOUT COMPLICATIONS Status: Chronic (3) Hypertension Code(s): I10 - ESSENTIAL (PRIMARY) HYPERTENSION Status: Chronic - Plan * DVT-clinically stable * HTN- blood pressure is stable * Stable for discharge home
[2019-05-11 17:22] VITALS: BP 189/82; TEMP 97.8
--- NOTE | 2019-05-11 22:02 | DIS ---
DATE OF ADMISSION: 05/09/2019 DATE OF DISCHARGE: 05/11/2019 DISCHARGE DISPOSITION: Home. DISCHARGE DIAGNOSES: 1. Right lower extremity deep venous thrombosis. 2. History of recent right total knee replacement. 3. Diabetes mellitus type 2. 4. Hypertension. 5. Osteoarthritis. DISCHARGE MEDICATIONS: Include: 1. Eliquis 10 mg twice daily for 7 days followed by 5 mg twice daily. 2. Aspirin 81 mg daily. 3. Ultram 50 mg q.6 daily. 4. Flomax 0.4 mg daily. 5. Metformin/sitagliptin 50/500 twice daily. 6. Lisinopril 20 mg daily. 7. Proscar 5 mg daily. CODE STATUS: Full code. ALLERGIES: NO KNOWN DRUG ALLERGIES. PROCEDURES DONE DURING ADMISSION: Admission the patient had a CT angiogram of the chest, which was negative for pulmonary embolism. HOSPITAL COURSE: Mr. Knapp is a pleasant 73-year-old gentleman, who was admitted to the hospital after he developed pain and swelling in the right leg. This was more than his postop pain. He had recently had a right total knee replacement. He was evaluated in the ER and found to have a deep vein thrombosis with a small focus of DVT within the proximal superficial vein within the proximal right thigh. He was started on Lovenox for this and then transitioned to Eliquis. He was instructed to be careful with ambulation once he returned home. He was also given warning signs with regard to bleeding and also if he were to develop chest pain or shortness of breath, to return to the emergency room. He was also instructed to follow up with his primary care physician as soon as possible and hopefully within the week. Job ID: [id number]
== END 2019-05-11 18:06 | disposition home or self-care (01) ==
LOC: ERS 18:13 → T4-B 23:28
PROVIDERS: ADMIT Family Medicine; ATTEND Family Medicine
DX: I82.411 Acute embolism and thrombosis of right femoral vein (principal); R06.02 Shortness of breath; E11.9 Type 2 diabetes mellitus without complications; I10 Essential (primary) hypertension; M19.90 Unspecified osteoarthritis, unspecified site; F32.9 Major depressive disorder, single episode, unspecified; Z79.1 Long term (current) use of non-steroidal anti-inflammatories (NSAID); Z79.82 Long term (current) use of aspirin; Z79.84 Long term (current) use of oral hypoglycemic drugs; Z79.899 Other long term (current) drug therapy; Z96.641 Presence of right artificial hip joint
CPT/HCPCS: 71045; 71275; 80048; 80053; 82550; 82962 ×2; 83605; 83880; 84484; 85025 ×2; 87040; 93005; 93970; 96361 ×3; 96372 ×2; 96374; 97116 ×2; 97139 ×3; 97530; 99285; G0378 ×3; 36415; 36416; 96360; J0360; J1650; Q9967

== ENCOUNTER 2019-09-01 11:00 | Outpatient (CLI) | payer MEDICARE, MEDICAID ==
--- NOTE | 2019-09-01 16:00 | RAD ---
XR Chest Pa Lat STANDARD History: Preop evaluation Comparison: Radiograph May 2019 Findings: Lungs are clear. No pneumothorax or effusion. Cardiac silhouette and mediastinal contours a re within normal limits. No acute osseous abnormality. Impression: No acute intrathoracic abnormality.
--- NOTE | 2019-09-01 16:05 | RAD ---
XR Knee Lt 4 View STANDARD History: Preop evaluation Comparison: July 2018 Findings: High-grade medial compartment degenerative disease with sclerosis, articular surface flatte su, and osteophyte formation. There is mild genu varus. Large osteophytes of the lateral and patellofemoral compartments. Moderate joint effusion. Old proximal fibular metadiaphyseal fracture. Impression: High-grade medial compartment degenerative changes.
--- NOTE | 2019-09-01 16:07 | RAD ---
FOUR VIEWS RIGHT KNEE: 09/01/19 COMPARISON: None. HISTORY: Preop prior to left knee surgery. Pain in the knees for years. FINDINGS: Four views of the right knee shows no evidence of acute fracture or dislocation. Mild tricompartmenta l joint space narrowing and osteophyte formation is seen consistent with osteoarthritis. No knee effu gaetano is seen. IMPRESSION: Mild right knee osteoarthritis. POS: TPC
== END 2019-09-01 11:01 | disposition home or self-care (01) ==
LOC: BICRAD 11:00
PROVIDERS: ATTEND Family Medicine
DX: M17.12 Unilateral primary osteoarthritis, left knee (principal); R91.8 Other nonspecific abnormal finding of lung field
CPT/HCPCS: 71046

== ENCOUNTER 2020-03-01 08:32 | Inpatient (IN) | payer MEDICARE, MEDICAID ==
[2020-03-01 09:31] LABS: Prothrombin Time 12.8 sec (12.0-14.7)
[2020-03-01 09:32] LABS: PTT 35.4 sec (22.9-36.1)
[2020-03-01] MEDS ORDERED: Rocuronium Bromide 10 MG/ML (10ML VIAL) ONE (10:00)
[2020-03-01] MEDS ORDERED: PHENYLEPHRINE-NS 100 MCG/ML 10 ML SYRINGE ONE (10:00)
[2020-03-01] MEDS ORDERED: Glycopyrrolate 0.2 MG/ML 5 ML SYRINGE ONE (10:00)
[2020-03-01] MEDS ORDERED: Lidocaine 1% PF 5 ML VIAL ONE (10:00)
[2020-03-01] MEDS ORDERED: PROPOFOL 200 MG/20 ML VIAL ONE (10:00)
[2020-03-01] MEDS ORDERED: Ondansetron PF 4 MG/2 ML Vial ONE (10:00)
[2020-03-01] MEDS ORDERED: Labetalol HCl 100 MG/20 ML VIAL ONE (10:00)
[2020-03-01] MEDS ORDERED: Dexamethasone 20 MG/5 ML VIAL ONE (10:00)
[2020-03-01] MEDS ORDERED: Fentanyl 100 MCG/2 ML VIAL ONE ×2 (10:23→12:34)
[2020-03-01] MEDS ORDERED: Levofloxacin 500 mg/D5W 100 ml Premix Bag ONE (10:30)
[2020-03-01] MEDS ORDERED: Mag-Al 1200 mg/1200 mg/30 ML UDCUP PO PRN (12:26)
[2020-03-01] MEDS ORDERED: HYDROcodone/Acetaminophen 5/325 mg Tablet PO PRN (12:26)
[2020-03-01] MEDS ORDERED: Phenazopyridine HCl 97.5 MG TABLET PO PRN (12:26)
[2020-03-01] MEDS ORDERED: diphenhydrAMINE 50 MG/ML VIAL IVP PRN (12:26)
[2020-03-01] MEDS ORDERED: Morphine 2 MG/ML VIAL SLOW IVP PRN (12:26)
[2020-03-01] MEDS ORDERED: Zolpidem Tartrate 5 MG TAB PO PRN (12:26)
[2020-03-01] MEDS ORDERED: Oxybutynin 5 MG TAB PO PRN (12:26)
[2020-03-01] MEDS ORDERED: Morphine 4 MG/ML VIAL SLOW IVP PRN (12:26)
[2020-03-01] MEDS ORDERED: Promethazine HCl 25 MG/ML VIAL IM PRN (12:29)
[2020-03-01] MEDS ORDERED: Promethazine HCl 25 MG/ML VIAL SLOW IVP PRN (12:29)
[2020-03-01] MEDS ORDERED: Ondansetron HCl/PF 4 MG/2 ML Vial IVP PRN (12:29)
[2020-03-01] MEDS ORDERED: Dextrose 50% Abboject 50 ML SYRINGE SLOW IVP PRN (12:31)
[2020-03-01] MEDS ORDERED: Dextrose 5% in Water 1,000 ML IV PRN (12:31)
[2020-03-01 13:14] LABS: #Eosinphils 0.1 thou/uL (0.0-0.7); #Lymphocytes 1.7 thou/uL (1.20-3.40); #Monocytes 0.4 thou/uL (0.11-0.59); %Basophils 0.1 % (0.0-1.0); %Eosinophils 0.6 % (0.0-10.0); %Lymphocytes 13.7 % (21.0-51.0); %Monocytes 3.6 % (0.0-10.0); %Neutrophils 81.9 % (42.0-75.0); Hemoglobin 11.3 g/dL (14.0-18.0); Mean Corpuscular HGB CONC 32.7 g/dL (32.0-36.0); Mean Corpuscular Hemoglobin 30.6 pg (27.0-31.0); Mean Corpuscular Volume 93.6 fL (78.0-98.0); Mean Platelet Volume 7.6 fL (7.4-10.4); Platelet Count 267 thou/uL (130-400); RBC Distribution Width 12.1 % (11.5-14.5); Red Blood Cell (RBC) Count 3.71 mill/uL (4.70-6.10); White Blood Cell (WBC) Count 12.2 thou/uL (4.8-10.8)
[2020-03-01 13:34] LABS: Anion Gap 13 mmol/L (10-20); BUN (Urea Nitrogen) 18 mg/dL (8.4-25.7); Calc. Creatinine Clearance 63 mL/min (70-130); Calcium 8.4 mg/dL (7.8-10.44); Carbon Dioxide 19 mmol/L (23-31); Chloride 109 mmol/L (98-107); Estimated GFR-MDRD 46; Glucose 190 mg/dL (83-110); Potassium 4.3 mmol/L (3.5-5.1); Sodium 137 mmol/L (136-145)
[2020-03-01 14:00] VITALS: BMI 33.7
[2020-03-01] MEDS: cefTRIAXone\\ROCEPHIN 1 GM in Sodium Chloride 0.9% 100 ML IVPB SCH (14:22)
[2020-03-01] MEDS ORDERED: hydrALAZINE 20 MG/ML VIAL SLOW IVP PRN (14:46)
[2020-03-01] MEDS: hydrALAZINE 20 MG/ML VIAL SLOW IVP PRN (14:52)
--- NOTE | 2020-03-01 15:04 | OP ---
DATE OF PROCEDURE: 03/01/2020 PREOPERATIVE DIAGNOSES: 1. A 74-year-old male with history of urinary tract infection. 2. Benign prostatic hyperplasia. 3. Urethral stricture. POSTOPERATIVE DIAGNOSES: 1. A 74-year-old male with history of urinary tract infection. 2. Benign prostatic hyperplasia. 3. Urethral stricture. PROCEDURES PERFORMED: 1. Cystoscopy. 2. Meatal calibration dilatation with [place] sounds. 3. Transurethral resection of prostate. 4. Vaporization of the prostatic urethra. 5. Urethral stricture dilation ANESTHESIA: General. COMPLICATIONS: None apparent. DRAINS: A 22-[place]izen [place] 30 mL three-way Nolasco catheter on CBI. ESTIMATED BLOOD LOSS: Less than 100 mL. IV FLUIDS: 1100 mL. SPECIMEN: TUR of prostate. INDICATIONS FOR PROCEDURE AND HISTORY: Mr. Tena is a 74-year-old male with history of elevated PSA, biopsy negative for malignancy with bilobar hyperplasia in the prostate, he has been on dual medical therapy. The patient with history of noncompliance, poorly controlled diabetes, and coronary artery disease. He has had multiple issues with followup compliance, clearance. He subsequently underwent clearance as advised, both Medical and Cardiology, and presents today for TURP and urethral stricture dilatation. He has been fully informed regarding risks and complications of surgery including, but not limited to: Bleeding, pain, infection, injury to adjacent organs, bladder neck contracture, recurrence of strictures, clot retention, urge incontinence, possible secondary procedure has been discussed with him in detail and he desires to proceed. He has been fully informed recurrent nature of urethral stricture disease. DESCRIPTION OF PROCEDURE: After an informed consent was signed, the patient was taken to the operating room and placed in a dorsal lithotomy position with the genital area prepped and draped in the usual surgical sterile fashion. A 21- [place] cystoscope was utilized for cystoscopy, which demonstrated diffuse urethral fibrotic changes. I was able to negotiate the scope atraumatically; however, there were multiple annular narrowing in the proximal penile bulbar urethra, caliber of strictures about 16 [place]. . However, we passed the scope gently and was able to passively dilate these. Prostatic urethra demonstrated bilobar hyperplasia of the prostate with no evidence of intravesical median lobe. The UOs were about 3 to 4 mm proximal to the bladder neck. There was no evidence of bladder stones or tumor of concern. At this time, we transitioned to our Olympus visual obturator resectoscope. This was passed under direct visualization. However, prior to this, as there was some hang up at the meatus with a 21, we dilated his fossa navicularis from 22-[place]izen [place] to 28 with ease. Subsequently, the 26-[place] resectoscope passed atraumatically. With this, the strictures passively dilated. At this time, the prostatic urethra was staged, and using a bipolar loop, we performed the transurethral resection of prostate. He did have some vascularity of the prostatic urethra as he has been previously on Eliquis. We did resect the prostate down to a nice channel. Near the end, I did transition to a vaporization button. All prostatic chips were evacuated with the Ajaline evacuator. We then finished the case by vaporizing and ablating the prostatic urethra and smoothing out the TUR edges. Good hemostasis was obtained. He did have some persistent oozing from the apical tissue and this was adequately resected and treated. Care was taken to stay proximal to the veru. At the end of the procedure, a nice channel created for him. A 22[place] 30 mL Nolasco catheter passed without difficulty and 30 mL insufflated. CBI tubing attached with clear output on a low rate. He tolerated the procedure well and transported to the recovery room in stable condition. Anticipate he will be discharged with indwelling urethral Nolasco catheter as his strictures were dilated as well. INTRAOPERATIVE FINDINGS: 1. Panurethral fibrosis, mild fossa navicularis stricture. 2. Caliber about 20-[place]. This was dilated from 22 to 26-[place]izen [place] Zak sounds. 3. Multiple annular strictures of the proximal penile urethral stricture about 16-[place] caliber, which was subsequently dilated upon restaging ureteroscopy at the end of the case. 4. Bilobar hyperplasia of the prostate with no median lobe. Job ID: [id number] [facility]
[2020-03-01] MEDS: Sodium Chloride 0.9% 1,000 ML IV SCH ×2 (15:06→20:14)
[2020-03-01] MEDS: Insulin Regular 300 UNITS/3 ML VIAL SC PRN ×2 (15:11→20:18)
[2020-03-01] MEDS: HYDROcodone/Acetaminophen 5/325 mg Tablet PO PRN ×2 (16:30→20:21)
[2020-03-01] MEDS: Alogliptin 25 MG TAB PO SCH (20:14)
[2020-03-01] MEDS: Docusate 100 MG CAP PO SCH (20:14)
[2020-03-01] MEDS: Famotidine/PF 20 mg/2ml Vial SLOW IVP SCH (20:14)
[2020-03-01] MEDS: metFORMIN 500 MG TAB PO SCH (20:14)
[2020-03-01] MEDS ORDERED: Non-Formulary Item 1 EACH (Sitagliptin Phos/Metformin Hcl [Janumet] 1 TAB) PO SCH (21:00)
[2020-03-02] MEDS: hydrALAZINE 20 MG/ML VIAL SLOW IVP PRN ×2 (00:02→23:47)
[2020-03-02] MEDS: Labetalol HCl 100 MG/20 ML VIAL SLOW IVP PRN ×2 (01:17→08:38)
[2020-03-02] MEDS: HYDROcodone/Acetaminophen 5/325 mg Tablet PO PRN ×3 (01:18→12:25)
[2020-03-02 05:10] LABS: #Lymphocytes 1.8 thou/uL (1.20-3.40); #Monocytes 0.9 thou/uL (0.11-0.59); #Neutrophils 12.3 thou/uL (1.40-6.50); %Basophils 0.1 % (0.0-1.0); %Eosinophils 0.1 % (0.0-10.0); %Lymphocytes 11.8 % (21.0-51.0); %Monocytes 6.1 % (0.0-10.0); %Neutrophils 81.9 % (42.0-75.0); Hemoglobin 11.8 g/dL (14.0-18.0); Mean Corpuscular HGB CONC 32.5 g/dL (32.0-36.0); Mean Corpuscular Hemoglobin 30.2 pg (27.0-31.0); Mean Platelet Volume 7.8 fL (7.4-10.4); Platelet Count 280 thou/uL (130-400); RBC Distribution Width 12.4 % (11.5-14.5); Red Blood Cell (RBC) Count 3.89 mill/uL (4.70-6.10)
[2020-03-02 05:31] LABS: Anion Gap 15 mmol/L (10-20); BUN (Urea Nitrogen) 21 mg/dL (8.4-25.7); Calc. Creatinine Clearance 55 mL/min (70-130); Calcium 8.1 mg/dL (7.8-10.44); Carbon Dioxide 18 mmol/L (23-31); Chloride 107 mmol/L (98-107); Estimated GFR-MDRD 40; Glucose 174 mg/dL (83-110); Potassium 4.5 mmol/L (3.5-5.1); Sodium 135 mmol/L (136-145)
[2020-03-02] MEDS: Insulin Regular 300 UNITS/3 ML VIAL SC PRN ×2 (06:07→17:16)
[2020-03-02] MEDS: Sodium Chloride 0.9% 1,000 ML IV SCH (06:11)
[2020-03-02] MEDS: Famotidine/PF 20 mg/2ml Vial SLOW IVP SCH (07:34)
[2020-03-02] MEDS: Finasteride 5 MG TAB PO SCH (07:35)
[2020-03-02] MEDS: Docusate 100 MG CAP PO SCH ×2 (07:35→21:17)
[2020-03-02] MEDS: Lisinopril 20 MG TAB PO SCH (07:35)
[2020-03-02] MEDS: Tamsulosin HCl 0.4 MG CAP PO SCH (07:35)
[2020-03-02] MEDS: metFORMIN 500 MG TAB PO SCH ×2 (07:35→21:17)
[2020-03-02] MEDS: Alogliptin 25 MG TAB PO SCH ×2 (07:35→21:17)
[2020-03-02] MEDS ORDERED: Tamsulosin HCl 0.4 MG CAP PO SCH (09:00)
--- NOTE | 2020-03-02 10:31 | PRG ---
DATE OF SERVICE: 03/02/2020 SUBJECTIVE: The patient has mild suprapubic discomfort as anticipated, overnight since post surgery his blood pressure has been labile with hypertension. His highest blood pressure is 197 over diastolic of 86. He had vague jaw pain yesterday; however, denied symptoms of angina. EKG was ordered last night. The patient currently denies chest pain, diaphoresis, radiating pain to the shoulder. OBJECTIVE: VITAL SIGNS: 98.9, 174/80 to 94, 154/82. I's and O's 2250 out. His CBI has been held per my request this morning with jon pink-tinged urine. GENERAL: The patient appears to be in no acute distress. HEART: Regular rate. LUNGS: Clear. ABDOMEN: Soft. No rigidity. No rebound. GENITOURINARY: Nolasco catheter is adequately secured, CBI has been held per my request with jon pink-tinged urine. I did flush the tubing with no subsequent clots, with immediate clearing. Therefore, his 3-way Nolasco catheter is transitioned to a leg bag, CBI port plugged. There is no evidence of calf tenderness, rubor, edema. IMPRESSION AND PLAN: 1. Mr. Knapp is a 74-year-old male with history of BPH, on dual medical therapy. 2. Urethral stricture postop day #1 status post cysto, TURP, urethral stricture dilatation. His most recent urine culture demonstrated low coun t bacteruia , is on appropriate Rocephin. He will need to be discharged with antibiotic therapy until Nolasco catheter removed sometime next week. 3. Hypertension. will consult his gristmill operator, Dr. Braun, for further recommendation. If he is cleared by Cardiology, I anticipate he can be discharged this afternoon. EKG in chart, troponin ordered for this morning. The patient informed. Job ID: [id number] [facility]
[2020-03-02] MEDS ORDERED: Ondansetron PF 4 MG/2 ML Vial IVP PRN (11:20)
[2020-03-02] MEDS ORDERED: cloNIDine 0.1 MG TAB PO PRN (11:24)
[2020-03-02] MEDS ORDERED: Amlodipine 5 MG TAB PO SCH ×2 (11:30→21:00)
[2020-03-02] MEDS ORDERED: cloNIDine 0.1 MG TAB PO SCH (11:30)
[2020-03-02 11:39] LABS: Troponin I 0.025 ng/mL (< 0.028)
[2020-03-02] MEDS: cefTRIAXone\\ROCEPHIN 1 GM in Sodium Chloride 0.9% 100 ML IVPB SCH (12:25)
--- NOTE | 2020-03-02 17:00 | CON ---
DATE OF CONSULTATION: 03/02/2020 REASON FOR CONSULTATION: Hypertension. HISTORY OF PRESENT ILLNESS: Mr. Ra Tena is a very pleasant 74-year-old gentleman, whom I have seen and evaluated in the past. He recently underwent prostatectomy. He has had difficulty with blood pressure postoperatively. Blood pressure in the 190s. He did complain of mild chest pain. Mr. Ra Oden has had a normal stress study performed in the last 8 months with a normal LVEF. PAST MEDICAL HISTORY: 1. Hypertension. 2. Hyperlipidemia. 3. Diabetes mellitus. 4. Previous superficial thrombosis of his lower extremity. HOME MEDICATIONS: Include, 1. Flomax. 2. Janumet. 3. Tramadol. SURGICAL HISTORY: As above including umbilical hernia repair, right hip replacement. SOCIAL HISTORY: Negative tobacco and negative alcohol use. FAMILY HISTORY: Negative for CAD. REVIEW OF SYSTEMS: A 10-point review of systems is reviewed as above, otherwise negative. PHYSICAL EXAMINATION: GENERAL: Patient is a pleasant gentleman, who is in no acute distress. The patient appears their stated age. VITAL SIGNS: Blood pressure 192/97, pulse 91, temperature 98.8. NEUROLOGIC: The patient is alert and oriented x3 with no focal neurologic deficits. HEENT: Sclerae without icterus. Mouth has moist mucous membranes with normal pallor. NECK: No JVD. Carotid upstroke brisk. No bruits bilaterally. LUNGS: Clear to auscultation with unlabored respirations. BACK: No scoliosis or kyphosis. CARDIAC: Regular rate and rhythm with normal S1 and S2. No S3 or S4 noted. No significant rubs, murmurs, thrills, or gallops noted throughout the precordium. PMI is not displaced. There is no parasternal heave. ABDOMEN: Soft, nontender, nondistended. No peritoneal signs present. No hepatosplenomegaly. No abnormal striae. EXTREMITIES: 2+ femoral and 2+ dorsalis pedis pulses. No cyanosis, clubbing, or edema. SKIN: No gross abnormalities. PERTINENT LABORATORY DATA: Hemoglobin 11.8. Creatinine 1.69. IMPRESSION: 1. Hypertension. 2. Recent prostatectomy. RECOMMENDATIONS: 1. Add clonidine p.r.n. for systolic greater than 180 or diastolic greater than 100. 2. Add Norvasc 5 mg one p.o. q.a.m. 3. Add Coreg 3.125 one p.o. b.i.d. We would recommend keeping overnight for further recommendations. Job ID: [id number]
[2020-03-02] MEDS ORDERED: Carvedilol 3.125 MG TAB PO SCH (21:00)
[2020-03-03] MEDS: Labetalol HCl 100 MG/20 ML VIAL SLOW IVP PRN (04:20)
[2020-03-03] MEDS: Insulin Regular 300 UNITS/3 ML VIAL SC PRN ×2 (06:35→12:23)
[2020-03-03] MEDS ORDERED: Carvedilol 3.125 MG TAB PO SCH (06:41)
--- NOTE | 2020-03-03 07:34 | PRG ---
DATE OF SERVICE: 03/03/2020 SUBJECTIVE: Mr. Knapp'pascual blood pressure is elevated, but better. No current complaints. OBJECTIVE: VITAL SIGNS: Blood pressure 171/78, pulse 115, respirations 20. LUNGS: Clear to auscultation. HEART: Regular rate and rhythm. ABDOMEN: Soft, nontender, nondistended. EXTREMITIES: No edema. PERTINENT LABORATORY DATA: Hemoglobin 11.8, hematocrit 36.2. IMPRESSION: 1. Hypertension. 2. Status post prostatectomy. RECOMMENDATIONS: 1. Increase Norvasc from 5 mg to 10 mg q.a.m. 2. Increase Coreg to 6.25 mg one p.o. b.i.d. 3. Okay for discharge with close outpatient followup. Job ID: [id number]
--- NOTE | 2020-03-03 08:36 | DIS ---
DATE OF ADMISSION: 03/02/2020 DATE OF DISCHARGE: 03/03/2020 ADMITTING DIAGNOSES: 1. History of benign prostatic hypertrophy. 2. Urethral stricture. 3. History of urinary tract infection. DISCHARGE DIAGNOSES: 1. History of benign prostatic hypertrophy. 2. Urethral stricture. 3. History of urinary tract infection. PROCEDURES PERFORMED: Cystoscopy, TURP, urethral stricture dilatation, catheter placement. DISPOSITION: Home, with son. DISCHARGE INSTRUCTIONS: No heavy lifting. No straddling. Nolasco catheter to gravity drainage. The patient declines transitioning to leg bag during the day. DISCHARGE MEDICATIONS: The patient is to continue his home medications , additional blood pressure medications provided by Dr. Braun, amlodipine 10 mg one p.o. daily, carvedilol 6.25 mg one p.o. b.i.d., Colace, continue finasteride, Flomax, tramadol sent to his pharmacy, ciprofloxacin, Azo, ciprofloxacin course of 10 days, tramadol 50 mg #30 one to two p.o. q.6 hours p.r.n. Advised regarding no aspirin, ibuprofen use. BRIEF HOSPITAL COURSE: Mr. Knapp is a 74-year-old male with history of poorly controlled diabetes, hypertension, he underwent formal cardiac clearance and was presented for TURP, urethral stricture dilatation treatment. Surgery was uneventful, his continuous bladder irrigation was held on postop day #1. Subsequently, his urine has been clear with H and H stable. He has baseline renal insufficiency. Due to postop hypertension labile, I did consult Dr. Braun, his veterinary hospital attendant. He has added amlodipine, Coreg. He was deemed cleared from cardiac perspective to be discharged. He did obtain an EKG and troponins, which were negative for acute changes and cleared to be discharged. FOLLOWUP: followup next for Nolasco catheter and voiding trial. Over 30 minutes spent with patient going over instructions for Nolasco catheter care, coordinating medical therapy with Cardiology, disposition, catheter teaching. Latvian speaking nurse utilized to provide instructions regarding catheter care. Job ID: [id number] [facility]
[2020-03-03] MEDS ORDERED: Famotidine/PF 20 mg/2ml Vial SLOW IVP SCH (09:00)
[2020-03-03] MEDS ORDERED: Amlodipine 5 MG TAB PO SCH (09:00)
[2020-03-03] MEDS ORDERED: Carvedilol 6.25 MG TAB PO SCH (09:00)
[2020-03-03] MEDS ORDERED: Amlodipine 10 MG TAB PO SCH (09:00)
[2020-03-03] MEDS: metFORMIN 500 MG TAB PO SCH (09:18)
[2020-03-03] MEDS: Lisinopril 20 MG TAB PO SCH (09:18)
[2020-03-03] MEDS: Tamsulosin HCl 0.4 MG CAP PO SCH (09:19)
[2020-03-03] MEDS: Finasteride 5 MG TAB PO SCH (09:19)
[2020-03-03] MEDS: Docusate 100 MG CAP PO SCH (09:19)
[2020-03-03] MEDS: Alogliptin 25 MG TAB PO SCH (09:20)
[2020-03-03 11:25] VITALS: BP 152/89; TEMP 98.5
[2020-03-03] MEDS: cefTRIAXone\\ROCEPHIN 1 GM in Sodium Chloride 0.9% 100 ML IVPB SCH (12:23)
--- NOTE | 2020-03-06 17:25 | EKG ---
Test Reason : CP Blood Pressure : / mmHG Vent. Rate : 116 BPM Atrial Rate : 116 BPM P-R Int : 194 ms QRS Dur : 092 ms QT Int : 318 ms P-R-T Axes : 043 066 038 degrees QTc Int : 442 ms Sinus tachycardia Nonspecific ST abnormality Abnormal ECG Confirmed by STEPHANIA MOORE (2) on 03/06/2020 5:25:16 PM Referred By: LILI Confirmed By:STEPHANIA MOORE
--- NOTE | 2020-03-06 17:28 | EKG ---
Test Reason : Blood Pressure : / mmHG Vent. Rate : 083 BPM Atrial Rate : 083 BPM P-R Int : 230 ms QRS Dur : 094 ms QT Int : 370 ms P-R-T Axes : 036 071 029 degrees QTc Int : 434 ms Sinus rhythm with 1st degree A-V block Otherwise normal ECG When compared with ECG of 02-MAR-2020 01:00, (Unconfirmed) [place] interval has increased Non-specific change in ST segment in Inferior leads ST no longer depressed in Anterior leads Confirmed by STEPHANIA MOORE (2) on 03/06/2020 5:27:56 PM Referred By: USHA Confirmed By:STEPHANIA MOORE
--- NOTE | 2020-03-06 17:39 | EKG ---
Test Reason : Blood Pressure : / mmHG Vent. Rate : 105 BPM Atrial Rate : 105 BPM P-R Int : 212 ms QRS Dur : 088 ms QT Int : 324 ms P-R-T Axes : 041 082 007 degrees QTc Int : 428 ms Sinus tachycardia with 1st degree A-V block Otherwise normal ECG When compared with ECG of 02-MAR-2020 11:16, (Unconfirmed) No significant change was found Confirmed by STEPHANIA MOORE (2) on 03/06/2020 5:39:40 PM Referred By: USHA Confirmed By:STEPHANIA MOORE
== END 2020-03-03 15:24 | disposition home or self-care (01) | DRG 714 ==
LOC: SDC 08:32 → SURG A 13:59 → OBSVTOIN 03-02 15:50
PROVIDERS: ADMIT Urology; ATTEND Urology
PROC: 0VT08ZZ Resection of Prostate, Via Natural or Artificial Opening Endoscopic (ICD-10-PCS; principal; 2020-03-01)
PROC: 0TJB8ZZ Inspection of Bladder, Via Natural or Artificial Opening Endoscopic (ICD-10-PCS; 2020-03-01)
PROC: 0T7D8ZZ Dilation of Urethra, Via Natural or Artificial Opening Endoscopic (ICD-10-PCS; 2020-03-01)
DX: N40.1 Benign prostatic hyperplasia with lower urinary tract symptoms (principal); N35.919 Unspecified urethral stricture, male, unspecified site; I10 Essential (primary) hypertension; D64.9 Anemia, unspecified; M19.90 Unspecified osteoarthritis, unspecified site; E78.5 Hyperlipidemia, unspecified; E11.9 Type 2 diabetes mellitus without complications; Z96.642 Presence of left artificial hip joint; R35.0 Frequency of micturition; Z86.718 Personal history of other venous thrombosis and embolism; Z79.01 Long term (current) use of anticoagulants; Z79.899 Other long term (current) drug therapy
CPT/HCPCS: 36415; 36416; 36600; 80048; 84484; 85025; 85610; 85730; 88305; 93005; 93010; 96361; 96365; 96375; 96376; G0378; J0360; J0696; J1100; J1815; J1956; J2270; J2405; J2704; J3010; J3490; S0028

== ENCOUNTER 2020-05-26 11:37 | Outpatient (CLI) | payer MEDICARE, MEDICAID ==
--- NOTE | 2020-05-26 12:39 | RAD ---
EXAM: Chest one view: HISTORY: Abnormal findings of lung mitchell COMPARISON: 09/01/2019 FINDINGS: Mild stable increased markings bilaterally. Heart size: Within normal limits. Lungs: Clear of acute process. No evidence for confluent lobar pneumonia, significant pleural effusion, acute edema, or pneumothorax , or other significant acute process. IMPRESSION: No significant acute intrathoracic disease. Minimal atherosclerotic change.
--- NOTE | 2020-05-26 13:18 | RAD ---
LUMBAR SPINE 2 VIEWS: Date: 05/26/2020 HISTORY: Back pain. Spinal stenosis. COMPARISON: Lumbar films dated 02/22/2019. FINDINGS: Degenerative hypertrophic changes of the lumbar spine again noted with anterior and lateral osteophyt es. Disc space narrowing at all levels. The lumbar vertebra maintain height and alignment and are unc hanged from prior exam. Prominent facet hypertrophy again noted. There is evidence of central canal s tenosis at multiple levels due to the posterior hypertrophic change. IMPRESSION: Moderate degenerative changes of the lumbar spine which appear stable from the prior exam. POS: OFF
--- NOTE | 2020-05-26 13:19 | RAD ---
SUPINE ABDOMEN: Date: 05/26/2020 HISTORY: Abnormal finding on diagnostic imaging renal pelvis ureter. FINDINGS: Bowel gas pattern unremarkable on this single supine projection. No abnormal calcification identified . Moderate degenerative changes in the spine. Prominent degenerative change at the left hip with subc hondral cystic change. Right hip prosthesis. IMPRESSION: No acute findings. POS: OFF
== END 2020-05-26 11:38 | disposition home or self-care (01) ==
LOC: BICRAD 11:37
PROVIDERS: ATTEND Family Medicine
DX: R91.8 Other nonspecific abnormal finding of lung field (principal); R93.41 Abnormal radiologic findings on diagnostic imaging of renal pelvis, ureter, or bladder; M48.00 Spinal stenosis, site unspecified; M47.816 Spondylosis without myelopathy or radiculopathy, lumbar region; I70.90 Unspecified atherosclerosis
CPT/HCPCS: 71045; 72100; 74018

== ENCOUNTER 2021-03-23 20:52 | Inpatient (IN) | payer MEDICAID, MEDICARE ==
[2021-03-23 23:10] LABS: Mean Corpuscular HGB CONC 32.2 g/dL (32.0-36.0); Mean Corpuscular Volume 89.9 fL (78.0-98.0); Mean Platelet Volume 7.8 fL (7.4-10.4); Platelet Count 285 thou/uL (130-400); Red Blood Cell (RBC) Count 4.14 mill/uL (4.70-6.10); White Blood Cell (WBC) Count 23.7 thou/uL (4.8-10.8)
[2021-03-23 23:28] LABS: Band 1 % (5-11); Hypochromia SLIGHT = 6-15 cells (100X) (0-5/hpf); Lymphocytes 26 % (21-51); MDiff Complete? YES; Monocytes 11 % (0-10); Neutrophil 62 % (42-75); Platelet Morphology Comment Appears Adequate
[2021-03-23 23:30] LABS: ALT (SGPT) 15 U/L (8-55); AST (SGOT) 16 U/L (5-34); Albumin 3.9 g/dL (3.4-4.8); Alkaline Phosphatase 76 U/L (40-110); Anion Gap 14 mmol/L (10-20); BUN (Urea Nitrogen) 32 mg/dL (8.4-25.7); Bilirubin, Total 0.7 mg/dL (0.2-1.2); CK (CPK) 226 U/L (30-200); Calc. Creatinine Clearance 0 mL/min (70-130); Calcium 8.9 mg/dL (7.8-10.44); Carbon Dioxide 21 mmol/L (23-31); Chloride 105 mmol/L (98-107); Globulin 3.5 g/dL (2.4-3.5); Glucose 174 mg/dL (83-110); Lipase 33 U/L (8-78); Potassium 4.2 mmol/L (3.5-5.1); Protein, Total 7.4 g/dL (5.8-8.1); Sodium 136 mmol/L (136-145)
[2021-03-24] MEDS ORDERED: Piperacillin/Tazobactam 3.375 GM VIAL ONE (03:09)
[2021-03-24] MEDS ORDERED: Vancomycin 1 GM/200 ML BAG ONE (04:04)
[2021-03-24] MEDS ORDERED: hydrALAZINE 20 MG/ML VIAL ONE (04:04)
[2021-03-24] MEDS ORDERED: cefTRIAXone\\ROCEPHIN 1 GM in Sodium Chloride 0.9% 100 ML IVPB SCH (08:00)
[2021-03-24] MEDS ORDERED: Vancomycin 1 GM in Premix Bag 1 BAG IVPB SCH (09:00)
[2021-03-24 09:11] LABS: Clarity Turbid (Clear)
[2021-03-24 09:14] LABS: Bilirubin Negative (Negative); Blood, Urine 2+ (Negative); Glucose, Urine (Dipstick) Negative (Negative); Ketone, Urine Negative (Negative); Leukocyte 500 Leu/uL (Negative); Nitrite 1+ (Negative); Protein, Urine (Dipstick) 600 mg/dL (Neg-Trace); Urobilinogen Normal mg/dL (Less than 2); WBC/HPF Greater than 50 HPF (0-3)
[2021-03-24 09:15] LABS: Bacteria/HPF 3+ HPF (None Seen); Squamous Epithelial 0-3 HPF (0-3)
[2021-03-24 09:41] VITALS: BMI 39.1
[2021-03-24] MEDS: hydrALAZINE 20 MG/ML VIAL SLOW IVP PRN ×2 (09:47→16:41)
[2021-03-24 10:37] LABS: Troponin I 0.023 ng/mL (< 0.028)
[2021-03-24] MEDS ORDERED: Ondansetron PF 4 MG/2 ML Vial IVP PRN (11:43)
[2021-03-24] MEDS ORDERED: Dextrose 50% Abboject 50 ML SYRINGE SLOW IVP PRN (11:44)
[2021-03-24] MEDS ORDERED: Dextrose 5% in Water 1,000 ML IV PRN (11:44)
[2021-03-24] MEDS: HumaLOG 300 UNITS/3 ML VIAL SC PRN ×3 (13:00→21:34)
[2021-03-24] MEDS: Sodium Chloride 0.9% 1,000 ML IV SCH (13:19)
[2021-03-24] MEDS ORDERED: Heparin 5,000 UNITS/ML VIAL SC SCH (15:00)
[2021-03-24] MEDS: cloNIDine 0.1 MG TAB PO SCH ×2 (15:33→20:57)
[2021-03-24 16:16] LABS: SARS-CoV-2 NAA Rapid Test Not Detected (NotDetected)
[2021-03-24] MEDS: traZODone HCl 50 MG TAB PO SCH (20:57)
[2021-03-25] MEDS: Sodium Chloride 0.9% 1,000 ML IV SCH (04:55)
[2021-03-25] MEDS: HumaLOG 300 UNITS/3 ML VIAL SC PRN ×4 (05:46→22:43)
[2021-03-25 07:04] LABS: #Eosinphils 0.2 thou/uL (0.0-0.7); #Lymphocytes 2.1 thou/uL (1.20-3.40); #Monocytes 1.2 thou/uL (0.11-0.59); #Neutrophils 10.5 thou/uL (1.40-6.50); %Basophils 0.2 % (0.0-1.0); %Eosinophils 1.3 % (0.0-10.0); %Lymphocytes 15.2 % (21.0-51.0); %Monocytes 8.3 % (0.0-10.0); Hemoglobin 10.3 g/dL (14.0-18.0); Mean Corpuscular HGB CONC 32.7 g/dL (32.0-36.0); Mean Corpuscular Hemoglobin 29.8 pg (27.0-31.0); Mean Corpuscular Volume 91.1 fL (78.0-98.0); Mean Platelet Volume 7.9 fL (7.4-10.4); Platelet Count 264 thou/uL (130-400); Red Blood Cell (RBC) Count 3.46 mill/uL (4.70-6.10); White Blood Cell (WBC) Count 14.1 thou/uL (4.8-10.8)
[2021-03-25 07:19] LABS: Anion Gap 11 mmol/L (10-20); BUN (Urea Nitrogen) 30 mg/dL (8.4-25.7); Calc. Creatinine Clearance 34 mL/min (70-130); Carbon Dioxide 21 mmol/L (23-31); Chloride 110 mmol/L (98-107); Glucose 175 mg/dL (83-110); Potassium 4.1 mmol/L (3.5-5.1); Sodium 138 mmol/L (136-145)
[2021-03-25] MEDS: Apixaban 5 MG TAB PO SCH (08:53)
[2021-03-25] MEDS: cloNIDine 0.1 MG TAB PO SCH ×3 (08:53→20:11)
[2021-03-25] MEDS: Tamsulosin HCl 0.4 MG CAP PO SCH (08:53)
[2021-03-25] MEDS ORDERED: Sodium Bicarbonate 75 MEQ in Sodium Chloride 0.45% 1,000 ML IV SCH (11:15)
[2021-03-25] MEDS: cefTRIAXone\\ROCEPHIN 1 GM in Sodium Chloride 0.9% 100 ML IVPB SCH (12:24)
[2021-03-25] MEDS: Carvedilol 6.25 MG TAB PO SCH (16:41)
[2021-03-25 19:10] LABS: Creatinine, Urine 130.34 mg/dL (63-166)
[2021-03-25] MEDS: traZODone HCl 50 MG TAB PO SCH (20:11)
[2021-03-26] MEDS: hydrALAZINE 20 MG/ML VIAL SLOW IVP PRN (03:53)
[2021-03-26 06:20] LABS: #Basophils 0.1 thou/uL (0.0-0.2); #Eosinphils 0.2 thou/uL (0.0-0.7); #Lymphocytes 2.3 thou/uL (1.20-3.40); #Monocytes 0.7 thou/uL (0.11-0.59); %Basophils 0.7 % (0.0-1.0); %Eosinophils 2.2 % (0.0-10.0); %Lymphocytes 24.7 % (21.0-51.0); %Monocytes 7.8 % (0.0-10.0); %Neutrophils 64.6 % (42.0-75.0); Hemoglobin 10.6 g/dL (14.0-18.0); Mean Corpuscular HGB CONC 32.9 g/dL (32.0-36.0); Mean Corpuscular Hemoglobin 29.9 pg (27.0-31.0); Mean Corpuscular Volume 90.8 fL (78.0-98.0); Mean Platelet Volume 7.6 fL (7.4-10.4); Platelet Count 276 thou/uL (130-400); RBC Distribution Width 12.7 % (11.5-14.5); Red Blood Cell (RBC) Count 3.55 mill/uL (4.70-6.10); White Blood Cell (WBC) Count 9.3 thou/uL (4.8-10.8)
[2021-03-26 06:43] LABS: Anion Gap 14 mmol/L (10-20); BUN (Urea Nitrogen) 30 mg/dL (8.4-25.7); Calc. Creatinine Clearance 39 mL/min (70-130); Calcium 8.3 mg/dL (7.8-10.44); Carbon Dioxide 20 mmol/L (23-31); Chloride 108 mmol/L (98-107); Glucose 157 mg/dL (83-110); Iron 36 ug/dL (65-175); Iron Binding Capacity, Total 229 mcg/dL (261-462); Phosphorus 3.9 mg/dL (2.3-4.7); Potassium 4.1 mmol/L (3.5-5.1); Sodium 138 mmol/L (136-145)
[2021-03-26] MEDS: Tamsulosin HCl 0.4 MG CAP PO SCH (08:26)
[2021-03-26] MEDS: Sodium Bicarbonate Tab 325 MG TAB PO SCH ×2 (08:27→20:49)
[2021-03-26] MEDS: Carvedilol 6.25 MG TAB PO SCH ×2 (08:28→16:41)
[2021-03-26] MEDS: NIFEdipine XL 60 MG TAB PO SCH (08:28)
[2021-03-26] MEDS: Apixaban 5 MG TAB PO SCH (08:28)
[2021-03-26] MEDS ORDERED: cloNIDine 0.1 MG TAB PO SCH (09:00)
[2021-03-26] MEDS: Sodium Bicarbonate 50 MEQ in Sodium Chloride 0.45% 1,000 ML IV SCH (10:34)
[2021-03-26] MEDS: HumaLOG 300 UNITS/3 ML VIAL SC PRN ×3 (12:25→20:56)
[2021-03-26] MEDS: cefTRIAXone\\ROCEPHIN 1 GM in Sodium Chloride 0.9% 100 ML IVPB SCH (12:26)
[2021-03-26] MEDS: traZODone HCl 50 MG TAB PO SCH (20:49)
[2021-03-27] MEDS: Sodium Bicarbonate 50 MEQ in Sodium Chloride 0.45% 1,000 ML IV SCH (02:37)
[2021-03-27] MEDS: HumaLOG 300 UNITS/3 ML VIAL SC PRN ×3 (05:58→20:47)
[2021-03-27 07:14] LABS: Anion Gap 13 mmol/L (10-20); BUN (Urea Nitrogen) 34 mg/dL (8.4-25.7); Calc. Creatinine Clearance 36 mL/min (70-130); Calcium 8.2 mg/dL (7.8-10.44); Carbon Dioxide 22 mmol/L (23-31); Chloride 107 mmol/L (98-107); Glucose 160 mg/dL (83-110); Sodium 138 mmol/L (136-145)
[2021-03-27] MEDS ORDERED: hydrALAZINE 25 MG TAB PO PRN (07:51)
[2021-03-27] MEDS ORDERED: cloNIDine 0.1 MG TAB PO SCH (08:45)
[2021-03-27] MEDS ORDERED: MEROPENEM 1 GM/50 ML 1 GM in Premix Bag 1 BAG IVPB SCH (09:00)
[2021-03-27] MEDS ORDERED: Meropenem 1 GM in Sodium Chloride 0.9% 100 ML IVPB SCH (09:00)
[2021-03-27] MEDS: Sodium Bicarbonate Tab 325 MG TAB PO SCH ×2 (09:04→20:29)
[2021-03-27] MEDS: NIFEdipine XL 60 MG TAB PO SCH (09:05)
[2021-03-27] MEDS: Tamsulosin HCl 0.4 MG CAP PO SCH (09:07)
[2021-03-27] MEDS: Carvedilol 6.25 MG TAB PO SCH ×2 (09:07→18:05)
[2021-03-27] MEDS: Apixaban 5 MG TAB PO SCH (09:08)
[2021-03-27] MEDS: Albumin 25% 25 GM/100 ML BOT IVPB SCH (14:17)
[2021-03-27] MEDS ORDERED: NIFEdipine XL 30 MG TAB PO SCH (17:30)
[2021-03-27] MEDS: traZODone HCl 50 MG TAB PO SCH (20:29)
[2021-03-27] MEDS: MEROPENEM 1 GM/50 ML 1 GM in Premix Bag 1 BAG IVPB SCH (20:30)
[2021-03-27] MEDS ORDERED: Benzonatate 100 MG CAP PO PRN (20:54)
[2021-03-27] MEDS: guaiFENesin/DM ER PO SCH (21:11)
[2021-03-28] MEDS: Albumin 25% 25 GM/100 ML BOT IVPB SCH ×2 (00:34→06:07)
[2021-03-28 08:57] LABS: Anion Gap 13 mmol/L (10-20); BUN (Urea Nitrogen) 26 mg/dL (8.4-25.7); Calc. Creatinine Clearance 39 mL/min (70-130); Calcium 8.4 mg/dL (7.8-10.44); Carbon Dioxide 25 mmol/L (23-31); Chloride 107 mmol/L (98-107); Glucose 157 mg/dL (83-110); Sodium 141 mmol/L (136-145)
[2021-03-28] MEDS ORDERED: NIFEdipine XL 90 MG TAB PO SCH (09:00)
[2021-03-28] MEDS: Sodium Bicarbonate Tab 325 MG TAB PO SCH ×2 (10:33→21:33)
[2021-03-28] MEDS: Apixaban 5 MG TAB PO SCH (10:34)
[2021-03-28] MEDS: Tamsulosin HCl 0.4 MG CAP PO SCH (10:34)
[2021-03-28] MEDS: Carvedilol 6.25 MG TAB PO SCH ×2 (10:34→17:21)
[2021-03-28] MEDS: guaiFENesin/DM ER PO SCH ×2 (10:38→21:34)
[2021-03-28] MEDS: HumaLOG 300 UNITS/3 ML VIAL SC PRN ×3 (10:40→21:40)
[2021-03-28] MEDS: MEROPENEM 1 GM/50 ML 1 GM in Premix Bag 1 BAG IVPB SCH ×2 (11:15→21:31)
[2021-03-28] MEDS: hydrALAZINE 20 MG/ML VIAL SLOW IVP PRN (15:46)
[2021-03-28] MEDS: traZODone HCl 50 MG TAB PO SCH (21:34)
[2021-03-28] MEDS: Acetaminophen 325 MG TAB PO PRN (21:38)
[2021-03-29 07:02] LABS: #Basophils 0.1 thou/uL (0.0-0.2); #Eosinphils 0.2 thou/uL (0.0-0.7); #Lymphocytes 2.5 thou/uL (1.20-3.40); #Neutrophils 8.2 thou/uL (1.40-6.50); %Basophils 0.6 % (0.0-1.0); %Eosinophils 1.4 % (0.0-10.0); %Lymphocytes 21.1 % (21.0-51.0); %Monocytes 8.4 % (0.0-10.0); %Neutrophils 68.5 % (42.0-75.0); Hemoglobin 10.8 g/dL (14.0-18.0); Mean Corpuscular HGB CONC 31.7 g/dL (32.0-36.0); Mean Corpuscular Volume 91.5 fL (78.0-98.0); Mean Platelet Volume 7.5 fL (7.4-10.4); Platelet Count 342 thou/uL (130-400); RBC Distribution Width 12.6 % (11.5-14.5); Red Blood Cell (RBC) Count 3.72 mill/uL (4.70-6.10); White Blood Cell (WBC) Count 11.9 thou/uL (4.8-10.8)
[2021-03-29 07:17] LABS: Anion Gap 11 mmol/L (10-20); BUN (Urea Nitrogen) 27 mg/dL (8.4-25.7); Calc. Creatinine Clearance 37 mL/min (70-130); Calcium 8.9 mg/dL (7.8-10.44); Carbon Dioxide 26 mmol/L (23-31); Chloride 108 mmol/L (98-107); Glucose 154 mg/dL (83-110); Potassium 4.2 mmol/L (3.5-5.1); Sodium 141 mmol/L (136-145)
[2021-03-29] MEDS: NIFEdipine XL 60 MG TAB PO SCH ×2 (09:09→20:52)
[2021-03-29] MEDS: Sodium Bicarbonate Tab 325 MG TAB PO SCH ×2 (09:11→20:52)
[2021-03-29] MEDS: Apixaban 5 MG TAB PO SCH (09:11)
[2021-03-29] MEDS: Tamsulosin HCl 0.4 MG CAP PO SCH (09:11)
[2021-03-29] MEDS: Labetalol 100 MG TAB PO SCH ×2 (09:11→20:53)
[2021-03-29] MEDS: MEROPENEM 1 GM/50 ML 1 GM in Premix Bag 1 BAG IVPB SCH ×2 (09:11→20:51)
[2021-03-29] MEDS: guaiFENesin/DM ER PO SCH ×2 (09:11→20:53)
[2021-03-29] MEDS: cloNIDine 0.1 MG TAB PO PRN (09:14)
[2021-03-29] MEDS ORDERED: Torsemide 20 MG TAB PO SCH (09:15)
[2021-03-29] MEDS: HumaLOG 300 UNITS/3 ML VIAL SC PRN ×2 (12:59→21:48)
[2021-03-29] MEDS: traZODone HCl 50 MG TAB PO SCH (20:53)
[2021-03-29] MEDS: Acetaminophen 325 MG TAB PO PRN (20:55)
[2021-03-30 07:04] LABS: #Basophils 0.1 thou/uL (0.0-0.2); #Eosinphils 0.2 thou/uL (0.0-0.7); #Lymphocytes 2.7 thou/uL (1.20-3.40); #Neutrophils 8.7 thou/uL (1.40-6.50); %Basophils 0.5 % (0.0-1.0); %Eosinophils 1.8 % (0.0-10.0); %Neutrophils 68.8 % (42.0-75.0); Hemoglobin 10.8 g/dL (14.0-18.0); Mean Corpuscular HGB CONC 31.6 g/dL (32.0-36.0); Mean Corpuscular Volume 91.7 fL (78.0-98.0); Mean Platelet Volume 7.4 fL (7.4-10.4); Platelet Count 363 thou/uL (130-400); RBC Distribution Width 12.6 % (11.5-14.5); Red Blood Cell (RBC) Count 3.74 mill/uL (4.70-6.10); White Blood Cell (WBC) Count 12.7 thou/uL (4.8-10.8)
[2021-03-30 07:36] LABS: Anion Gap 15 mmol/L (10-20); BUN (Urea Nitrogen) 26 mg/dL (8.4-25.7); Calc. Creatinine Clearance 36 mL/min (70-130); Calcium 8.7 mg/dL (7.8-10.44); Carbon Dioxide 24 mmol/L (23-31); Chloride 107 mmol/L (98-107); Glucose 147 mg/dL (83-110); Sodium 142 mmol/L (136-145)
[2021-03-30] MEDS: MEROPENEM 1 GM/50 ML 1 GM in Premix Bag 1 BAG IVPB SCH ×2 (08:57→20:06)
[2021-03-30] MEDS: Apixaban 5 MG TAB PO SCH (08:58)
[2021-03-30] MEDS: NIFEdipine XL 60 MG TAB PO SCH ×2 (08:58→20:02)
[2021-03-30] MEDS: hydrALAZINE 20 MG/ML VIAL SLOW IVP PRN (08:58)
[2021-03-30] MEDS: Sodium Bicarbonate Tab 325 MG TAB PO SCH ×2 (08:58→20:03)
[2021-03-30] MEDS: Labetalol 100 MG TAB PO SCH ×2 (08:59→20:04)
[2021-03-30] MEDS: guaiFENesin/DM ER PO SCH ×2 (08:59→20:05)
[2021-03-30] MEDS: Tamsulosin HCl 0.4 MG CAP PO SCH (08:59)
[2021-03-30] MEDS ORDERED: Torsemide 20 MG TAB PO SCH (09:00)
[2021-03-30] MEDS: Acetaminophen 325 MG TAB PO PRN (20:01)
[2021-03-30] MEDS: Lisinopril 20 MG TAB PO SCH (20:05)
[2021-03-30] MEDS: traZODone HCl 50 MG TAB PO SCH (20:05)
[2021-03-30] MEDS: HumaLOG 300 UNITS/3 ML VIAL SC PRN (20:45)
[2021-03-31 06:34] LABS: Albumin 3.7 g/dL (3.4-4.8); Anion Gap 16 mmol/L (10-20); BUN (Urea Nitrogen) 29 mg/dL (8.4-25.7); BUN/Creatinine Ratio 11.55; Calc. Creatinine Clearance 36 mL/min (70-130); Carbon Dioxide 23 mmol/L (23-31); Chloride 106 mmol/L (98-107); Glucose 152 mg/dL (83-110); Sodium 141 mmol/L (136-145)
[2021-03-31] MEDS: Lisinopril 20 MG TAB PO SCH ×2 (08:54→20:37)
[2021-03-31] MEDS: Labetalol 100 MG TAB PO SCH ×2 (08:54→20:37)
[2021-03-31] MEDS: MEROPENEM 1 GM/50 ML 1 GM in Premix Bag 1 BAG IVPB SCH ×2 (08:54→20:36)
[2021-03-31] MEDS: Sodium Bicarbonate Tab 325 MG TAB PO SCH ×2 (08:54→20:35)
[2021-03-31] MEDS: guaiFENesin/DM ER PO SCH ×2 (08:54→20:31)
[2021-03-31] MEDS: NIFEdipine XL 60 MG TAB PO SCH ×2 (08:55→20:36)
[2021-03-31] MEDS: Apixaban 5 MG TAB PO SCH (08:55)
[2021-03-31] MEDS: Tamsulosin HCl 0.4 MG CAP PO SCH (08:55)
[2021-03-31] MEDS: HumaLOG 300 UNITS/3 ML VIAL SC PRN ×2 (10:47→20:56)
[2021-03-31] MEDS: traZODone HCl 50 MG TAB PO SCH (20:32)
[2021-04-01] MEDS: cloNIDine 0.1 MG TAB PO PRN (00:13)
[2021-04-01 06:15] LABS: #Eosinphils 0.3 thou/uL (0.0-0.7); #Lymphocytes 2.5 thou/uL (1.20-3.40); #Monocytes 0.8 thou/uL (0.11-0.59); #Neutrophils 6.8 thou/uL (1.40-6.50); %Basophils 0.4 % (0.0-1.0); %Eosinophils 2.9 % (0.0-10.0); %Lymphocytes 23.8 % (21.0-51.0); %Monocytes 7.9 % (0.0-10.0); Hemoglobin 9.5 g/dL (14.0-18.0); Mean Corpuscular HGB CONC 31.8 g/dL (32.0-36.0); Mean Corpuscular Hemoglobin 29.4 pg (27.0-31.0); Mean Corpuscular Volume 92.7 fL (78.0-98.0); Mean Platelet Volume 6.7 fL (7.4-10.4); Platelet Count 340 thou/uL (130-400); RBC Distribution Width 12.8 % (11.5-14.5); Red Blood Cell (RBC) Count 3.23 mill/uL (4.70-6.10); White Blood Cell (WBC) Count 10.5 thou/uL (4.8-10.8)
[2021-04-01 06:33] LABS: Anion Gap 12 mmol/L (10-20); BUN (Urea Nitrogen) 31 mg/dL (8.4-25.7); Calc. Creatinine Clearance 38 mL/min (70-130); Calcium 8.6 mg/dL (7.8-10.44); Carbon Dioxide 26 mmol/L (23-31); Chloride 107 mmol/L (98-107); Glucose 148 mg/dL (83-110); Potassium 4.3 mmol/L (3.5-5.1); Sodium 141 mmol/L (136-145)
[2021-04-01] MEDS ORDERED: Labetalol 100 MG TAB PO SCH ×2 (06:45→21:00)
[2021-04-01] MEDS: guaiFENesin/DM ER PO SCH (08:47)
[2021-04-01] MEDS: Lisinopril 20 MG TAB PO SCH (08:47)
[2021-04-01] MEDS: Sodium Bicarbonate Tab 325 MG TAB PO SCH (08:47)
[2021-04-01] MEDS: NIFEdipine XL 60 MG TAB PO SCH (08:47)
[2021-04-01] MEDS: Apixaban 5 MG TAB PO SCH (08:47)
[2021-04-01] MEDS: MEROPENEM 1 GM/50 ML 1 GM in Premix Bag 1 BAG IVPB SCH (08:47)
[2021-04-01] MEDS: Tamsulosin HCl 0.4 MG CAP PO SCH (08:48)
[2021-04-01 11:50] VITALS: BP 157/81; TEMP 98.6
[2021-04-01 18:35] LABS: SARS-CoV-2 PCR by NAA Not Detected (NotDetected)
== END 2021-04-01 15:36 | disposition home health service (06) | DRG 872 ==
LOC: ERS 20:52 → SURG A 03-24 03:33
PROVIDERS: ADMIT Student in an Organized Health Care Education/Training Program; ATTEND Hospitalist
DX: A41.51 Sepsis due to Escherichia coli [E. coli] (principal); Z16.24 Resistance to multiple antibiotics; N39.0 Urinary tract infection, site not specified; N17.9 Acute kidney failure, unspecified; E87.2 Acidosis; Z20.822 Contact with and (suspected) exposure to COVID-19; Z96.641 Presence of right artificial hip joint; N18.30 Chronic kidney disease, stage 3 unspecified; E11.22 Type 2 diabetes mellitus with diabetic chronic kidney disease; I12.9 Hypertensive chronic kidney disease with stage 1 through stage 4 chronic kidney disease, or unspecified chronic kidney disease; R65.20 Severe sepsis without septic shock; N40.0 Benign prostatic hyperplasia without lower urinary tract symptoms; N18.32 Chronic kidney disease, stage 3b; E11.21 Type 2 diabetes mellitus with diabetic nephropathy; D63.1 Anemia in chronic kidney disease; E66.01 Morbid (severe) obesity due to excess calories; T46.4X5A Adverse effect of angiotensin-converting-enzyme inhibitors, initial encounter; R60.0 Localized edema; T46.5X5A Adverse effect of other antihypertensive drugs, initial encounter; Z86.718 Personal history of other venous thrombosis and embolism; Z68.39 Body mass index [BMI] 39.0-39.9, adult; Z28.21 Immunization not carried out because of patient refusal; Z79.899 Other long term (current) drug therapy; Z79.84 Long term (current) use of oral hypoglycemic drugs
CPT/HCPCS: 36415; 36416; 71045; 76770; 80048; 80053; 80069; 81001; 82040; 82550; 82570; 82728; 83540; 83550; 83605; 83690; 83880; 84100; 84156; 84300; 84484; 84540; 85025; 87040; 87077; 87086; 87186; 93005; J0360; J0696; J1815; J2185; J2543; J3370; J3490; J7050; P9047; U0002; U0003; U0005

== ENCOUNTER 2021-10-29 15:37 | Inpatient (IN) | payer MEDICARE, OTHER ==
[2021-10-29 16:24] LABS: #Basophils 0.1 thou/uL (0.0-0.2); #Eosinphils 0.3 thou/uL (0.0-0.7); #Lymphocytes 2.3 thou/uL (1.20-3.40); #Neutrophils 8.8 thou/uL (1.40-6.50); %Basophils 0.5 % (0.0-1.0); %Eosinophils 2.2 % (0.0-10.0); %Lymphocytes 18.3 % (21.0-51.0); %Monocytes 7.7 % (0.0-10.0); %Neutrophils 71.2 % (42.0-75.0); Hemoglobin 11.4 g/dL (14.0-18.0); Mean Corpuscular HGB CONC 33.1 g/dL (32.0-36.0); Mean Corpuscular Hemoglobin 31.2 pg (27.0-31.0); Mean Platelet Volume 6.8 fL (7.4-10.4); Platelet Count 343 thou/uL (130-400); RBC Distribution Width 13.2 % (11.5-14.5); Red Blood Cell (RBC) Count 3.67 mill/uL (4.70-6.10); White Blood Cell (WBC) Count 12.4 thou/uL (4.8-10.8)
[2021-10-29 16:47] LABS: ALT (SGPT) 10 U/L (8-55); AST (SGOT) 13 U/L (5-34); Albumin 4.4 g/dL (3.4-4.8); Alkaline Phosphatase 81 U/L (40-110); Anion Gap 16 mmol/L (10-20); BUN (Urea Nitrogen) 41 mg/dL (8.4-25.7); Bilirubin, Total 0.3 mg/dL (0.2-1.2); Calc. Creatinine Clearance 0 mL/min (70-130); Calcium 9.1 mg/dL (7.8-10.44); Carbon Dioxide 16 mmol/L (23-31); Chloride 112 mmol/L (98-107); Globulin 4.8 g/dL (2.4-3.5); Glucose 136 mg/dL (83-110); Potassium 4.5 mmol/L (3.5-5.1); Protein, Total 9.2 g/dL (5.8-8.1); Sodium 139 mmol/L (136-145)
[2021-10-29] MEDS ORDERED: Piperacillin/Tazobactam 3.375 GM VIAL ONE (17:22)
[2021-10-29] MEDS ORDERED: Vancomycin 1 GM/200 ML BAG ONE (17:22)
[2021-10-29] MEDS ORDERED: HumaLOG 300 UNITS/3 ML VIAL SC PRN ×2 (18:36)
[2021-10-29] MEDS ORDERED: Dextrose 5% in Water 1,000 ML IV PRN (18:36)
[2021-10-29] MEDS ORDERED: Dextrose 50% Abboject 50 ML SYRINGE SLOW IVP PRN (18:36)
[2021-10-29] MEDS ORDERED: Ondansetron PF 4 MG/2 ML Vial IVP PRN (18:38)
[2021-10-29] MEDS ORDERED: Ondansetron ODT 4 MG TAB PO PRN (18:38)
[2021-10-29] MEDS ORDERED: Senokot S 8.6-50 MG TAB PO PRN (18:38)
[2021-10-29] MEDS ORDERED: Acetaminophen 325 MG TAB PO PRN (18:38)
[2021-10-29] MEDS ORDERED: traMADol HCl 50 MG TAB PO PRN (18:43)
[2021-10-29 19:14] LABS: Lactic Acid 1.3 mmol/L (0.5-2.2)
[2021-10-29 20:47] VITALS: BMI 34.5
[2021-10-29] MEDS: Sodium Chloride 0.9% 1,000 ML IV SCH (20:52)
[2021-10-29] MEDS: Sodium Bicarbonate Tab 325 MG TAB PO SCH (20:53)
[2021-10-29] MEDS: Labetalol HCl 100 MG TAB PO SCH (20:53)
[2021-10-29] MEDS: traZODone HCl 50 MG TAB PO SCH (20:53)
[2021-10-29] MEDS: Lisinopril 20 MG TAB PO SCH (20:53)
[2021-10-29 21:28] LABS: Bacteria/HPF None Seen HPF (None Seen); Bilirubin Negative (Negative); Blood, Urine Trace (Negative); Clarity Clear (Clear); Glucose, Urine (Dipstick) Normal (Negative); Ketone, Urine Negative (Negative); Leukocyte Negative Leu/uL (Negative); Nitrite Negative (Negative); Protein, Urine (Dipstick) 200 mg/dL (Neg-Trace); RBC/HPF 0-3 HPF (0-3); Specific Gravity, Urine 1.018 (1.002-1.036); Squamous Epithelial 0-3 HPF (0-3); Urobilinogen Normal mg/dL (Less than 2); WBC/HPF 0-3 HPF (0-3); pH, Urine 5.5 (5.0-9.0)
[2021-10-29] MEDS ORDERED: Cefepime 1 GM in Sodium Chloride 0.9% 100 ML IVPB SCH (22:00)
[2021-10-29 22:12] LABS: SARS-CoV-2 NAA Rapid Test Not Detected (NotDetected)
[2021-10-30] MEDS: hydrALAZINE 20 MG/ML VIAL SLOW IVP PRN ×4 (00:43→20:58)
[2021-10-30 07:08] LABS: #Eosinphils 0.2 thou/uL (0.0-0.7); #Lymphocytes 1.4 thou/uL (1.20-3.40); #Monocytes 0.6 thou/uL (0.11-0.59); %Basophils 0.4 % (0.0-1.0); %Eosinophils 1.7 % (0.0-10.0); %Lymphocytes 12.8 % (21.0-51.0); %Monocytes 5.4 % (0.0-10.0); %Neutrophils 79.8 % (42.0-75.0); Hemoglobin 9.4 g/dL (14.0-18.0); Mean Corpuscular HGB CONC 32.6 g/dL (32.0-36.0); Mean Corpuscular Hemoglobin 30.3 pg (27.0-31.0); Mean Platelet Volume 6.6 fL (7.4-10.4); Platelet Count 293 thou/uL (130-400); RBC Distribution Width 13.1 % (11.5-14.5); Red Blood Cell (RBC) Count 3.09 mill/uL (4.70-6.10); White Blood Cell (WBC) Count 11.2 thou/uL (4.8-10.8)
[2021-10-30 07:13] LABS: Hemoglobin A1c 5.9 % (4.0-6.0)
[2021-10-30 07:28] LABS: Anion Gap 12 mmol/L (10-20); BUN (Urea Nitrogen) 37 mg/dL (8.4-25.7); Calc. Creatinine Clearance 37 mL/min (70-130); Calcium 8.3 mg/dL (7.8-10.44); Carbon Dioxide 17 mmol/L (23-31); Chloride 115 mmol/L (98-107); Glucose 131 mg/dL (83-110); Potassium 4.3 mmol/L (3.5-5.1); Sodium 140 mmol/L (136-145)
[2021-10-30] MEDS: Sodium Chloride 0.9% 1,000 ML IV SCH (08:08)
[2021-10-30] MEDS: Sodium Bicarbonate Tab 325 MG TAB PO SCH ×2 (08:09→22:03)
[2021-10-30] MEDS: Lisinopril 20 MG TAB PO SCH ×2 (08:09→22:04)
[2021-10-30] MEDS: Labetalol HCl 100 MG TAB PO SCH ×2 (08:19→22:03)
[2021-10-30] MEDS ORDERED: Tamsulosin HCl 0.4 MG CAP PO SCH (09:00)
[2021-10-30] MEDS ORDERED: Apixaban 5 MG TAB PO SCH (09:00)
[2021-10-30] MEDS ORDERED: Furosemide 20 MG/2 ML VIAL SLOW IVP SCH (15:15)
[2021-10-30] MEDS: cefTRIAXone\\ROCEPHIN 1 GM in Sodium Chloride 0.9% 100 ML IVPB SCH (15:51)
[2021-10-30] MEDS ORDERED: Vancomycin 1 GM in Premix Bag 1 BAG IVPB SCH (17:00)
[2021-10-30] MEDS: traZODone HCl 50 MG TAB PO SCH (22:03)
[2021-10-30] MEDS: cloNIDine 0.1 MG TAB PO SCH (22:04)
[2021-10-31] MEDS: hydrALAZINE 20 MG/ML VIAL SLOW IVP PRN ×3 (05:39→13:13)
[2021-10-31] MEDS: Lisinopril 20 MG TAB PO SCH (08:23)
[2021-10-31] MEDS: cloNIDine 0.1 MG TAB PO SCH ×2 (08:23→15:00)
[2021-10-31] MEDS: Labetalol HCl 100 MG TAB PO SCH (08:27)
[2021-10-31 08:28] LABS: Anion Gap 9 mmol/L (10-20); BUN (Urea Nitrogen) 31 mg/dL (8.4-25.7); Calc. Creatinine Clearance 38 mL/min (70-130); Calcium 8.2 mg/dL (7.8-10.44); Carbon Dioxide 19 mmol/L (23-31); Chloride 115 mmol/L (98-107); Glucose 140 mg/dL (83-110); Sodium 139 mmol/L (136-145)
[2021-10-31 08:30] LABS: #Eosinphils 0.2 thou/uL (0.0-0.7); #Lymphocytes 1.9 thou/uL (1.20-3.40); #Monocytes 0.8 thou/uL (0.11-0.59); #Neutrophils 6.5 thou/uL (1.40-6.50); %Basophils 0.4 % (0.0-1.0); %Eosinophils 2.2 % (0.0-10.0); %Monocytes 8.1 % (0.0-10.0); %Neutrophils 69.2 % (42.0-75.0); Hemoglobin 8.9 g/dL (14.0-18.0); Mean Corpuscular HGB CONC 33.4 g/dL (32.0-36.0); Mean Corpuscular Hemoglobin 31.1 pg (27.0-31.0); Mean Corpuscular Volume 93.2 fL (78.0-98.0); Mean Platelet Volume 6.8 fL (7.4-10.4); Platelet Count 268 thou/uL (130-400); RBC Distribution Width 13.2 % (11.5-14.5); Red Blood Cell (RBC) Count 2.85 mill/uL (4.70-6.10); White Blood Cell (WBC) Count 9.4 thou/uL (4.8-10.8)
[2021-10-31 08:39] VITALS: TEMP 97.3
[2021-10-31] MEDS ORDERED: Apixaban 5 MG TAB PO SCH ×2 (09:00)
[2021-10-31] MEDS ORDERED: Non-Formulary Item 1 EACH (Labetalol Hcl [Normodyne] 200 MG Tab) PO SCH (09:00)
[2021-10-31] MEDS ORDERED: Non-Formulary Item 1 EACH (Sodium Bicarbonate [Sodium Bicarbonate] 650 MG Tablet) PO SCH (09:00)
[2021-10-31] MEDS ORDERED: Tamsulosin HCl 0.4 MG CAP PO SCH ×2 (09:00)
[2021-10-31] MEDS ORDERED: NIFEdipine XL 60 MG TAB PO SCH (09:00)
[2021-10-31] MEDS ORDERED: Non-Formulary Item 1 EACH (Nifedipine [Nifedipine Er] 60 MG Tablet.Er) PO SCH (09:00)
[2021-10-31] MEDS ORDERED: Labetalol HCl 100 MG TAB PO SCH (09:00)
[2021-10-31] MEDS ORDERED: Sodium Bicarbonate Tab 325 MG TAB PO SCH (09:00)
[2021-10-31 11:49] LABS: #Eosinphils 0.2 thou/uL (0.0-0.7); #Lymphocytes 1.6 thou/uL (1.20-3.40); #Monocytes 0.7 thou/uL (0.11-0.59); #Neutrophils 7.5 thou/uL (1.40-6.50); %Basophils 0.5 % (0.0-1.0); %Eosinophils 2.3 % (0.0-10.0); %Lymphocytes 16.1 % (21.0-51.0); %Monocytes 6.6 % (0.0-10.0); %Neutrophils 74.6 % (42.0-75.0); Hemoglobin 9.9 g/dL (14.0-18.0); Mean Corpuscular HGB CONC 33.5 g/dL (32.0-36.0); Mean Corpuscular Hemoglobin 31.1 pg (27.0-31.0); Mean Corpuscular Volume 92.8 fL (78.0-98.0); Mean Platelet Volume 6.9 fL (7.4-10.4); Platelet Count 313 thou/uL (130-400); RBC Distribution Width 13.3 % (11.5-14.5); Red Blood Cell (RBC) Count 3.19 mill/uL (4.70-6.10)
[2021-10-31 12:12] LABS: Anion Gap 12 mmol/L (10-20); BUN (Urea Nitrogen) 33 mg/dL (8.4-25.7); Calc. Creatinine Clearance 34 mL/min (70-130); Calcium 8.4 mg/dL (7.8-10.44); Carbon Dioxide 18 mmol/L (23-31); Chloride 114 mmol/L (98-107); Glucose 158 mg/dL (83-110); Potassium 4.4 mmol/L (3.5-5.1); Sodium 140 mmol/L (136-145)
[2021-10-31] MEDS: cefTRIAXone\\ROCEPHIN 1 GM in Sodium Chloride 0.9% 100 ML IVPB SCH (15:00)
[2021-10-31 15:01] VITALS: BP 171/78
== END 2021-10-31 15:55 | disposition home or self-care (01) | DRG 607 ==
LOC: ERS 15:37 → INTOOBSV 18:00 → T4-B 18:00 → OBSVTOIN 10-30 10:48
PROVIDERS: ADMIT Hospitalist; ATTEND Internal Medicine
DX: B35.9 Dermatophytosis, unspecified (principal); E87.2 Acidosis; N18.4 Chronic kidney disease, stage 4 (severe); D63.1 Anemia in chronic kidney disease; Z20.822 Contact with and (suspected) exposure to COVID-19; I12.9 Hypertensive chronic kidney disease with stage 1 through stage 4 chronic kidney disease, or unspecified chronic kidney disease; E11.22 Type 2 diabetes mellitus with diabetic chronic kidney disease; E11.51 Type 2 diabetes mellitus with diabetic peripheral angiopathy without gangrene; Z96.641 Presence of right artificial hip joint; R60.0 Localized edema; E86.0 Dehydration; R21 Rash and other nonspecific skin eruption; E11.69 Type 2 diabetes mellitus with other specified complication; E66.9 Obesity, unspecified; Z68.34 Body mass index [BMI] 34.0-34.9, adult
CPT/HCPCS: 36415; 36416; 71045; 71046; 80048; 80053; 81001; 83036; 83605; 83880; 85025; 87040; 93970; 96365; 96367; 96375; G0378; J0360; J0692; J0696; J1940; J2543; J3370; J3490; J7050; U0002

== ENCOUNTER 2022-06-23 07:26 | Emergency (ER) | payer OTHER ==
[2022-06-23] MEDS ORDERED: Ondansetron PF 4 MG/2 ML Vial ONE (07:54)
[2022-06-23 08:39] LABS: #Eosinphils 0.1 thou/uL (0.0-0.7); #Lymphocytes 0.5 thou/uL (1.20-3.40); #Monocytes 0.8 thou/uL (0.11-0.59); #Neutrophils 15.3 thou/uL (1.40-6.50); %Eosinophils 0.4 % (0.0-10.0); %Lymphocytes 3.1 % (21.0-51.0); %Monocytes 4.9 % (0.0-10.0); %Neutrophils 91.5 % (42.0-75.0); Hemoglobin 11.4 g/dL (14.0-18.0); Mean Corpuscular HGB CONC 32.9 g/dL (32.0-36.0); Mean Corpuscular Hemoglobin 31.1 pg (27.0-31.0); Mean Corpuscular Volume 94.4 fl (78.0-98.0); Mean Platelet Volume 7.4 fL (7.4-10.4); Platelet Count 309 10x3/uL (130-400); RBC Distribution Width 13.1 % (11.5-14.5); Red Blood Cell (RBC) Count 3.66 mill/uL (4.70-6.10); White Blood Cell (WBC) Count 16.7 10x3/uL (4.8-10.8)
[2022-06-23 09:01] LABS: ALT (SGPT) 15 U/L (8-55); AST (SGOT) 20 U/L (5-34); Albumin 4.1 g/dL (3.4-4.8); Alkaline Phosphatase 79 U/L (40-110); Anion Gap 17 mmol/L (10-20); BUN (Urea Nitrogen) 47 mg/dL (8.4-25.7); Bilirubin, Total 0.3 mg/dL (0.2-1.2); CK (CPK) 194 U/L (30-200); Calc. Creatinine Clearance 0 mL/min (70-130); Calcium 8.7 mg/dL (7.8-10.44); Carbon Dioxide 18 mmol/L (23-31); Chloride 106 mmol/L (98-107); Estimated GFR 16; Globulin 3.8 g/dL (2.4-3.5); Glucose 246 mg/dL (83-110); Lipase 176 U/L (8-78); Potassium 4.9 mmol/L (3.5-5.1); Protein, Total 7.9 g/dL (5.8-8.1); Sodium 136 mmol/L (136-145)
[2022-06-23 09:51] LABS: Bacteria/HPF None Seen HPF (None Seen); Bilirubin Negative (Negative); Blood, Urine 1+ (Negative); Clarity Clear (Clear); Glucose, Urine (Dipstick) Greater than 1000 mg/dL (Negative); Ketone, Urine Negative (Negative); Leukocyte Negative Leu/uL (Negative); Nitrite Negative (Negative); Protein, Urine (Dipstick) 100 mg/dL (Neg-Trace); RBC/HPF 0-3 HPF (0-3); Specific Gravity, Urine 1.017 (1.002-1.036); Squamous Epithelial 0-3 HPF (0-3); Urobilinogen Normal mg/dL (Less than 2); WBC/HPF 0-3 HPF (0-3)
== END 2022-06-23 10:12 | disposition home or self-care (01) ==
LOC: ERS 07:26
DX: J18.9 Pneumonia, unspecified organism (principal); E11.22 Type 2 diabetes mellitus with diabetic chronic kidney disease; I12.9 Hypertensive chronic kidney disease with stage 1 through stage 4 chronic kidney disease, or unspecified chronic kidney disease; N18.9 Chronic kidney disease, unspecified; Z20.822 Contact with and (suspected) exposure to COVID-19
CPT/HCPCS: 71045; 74176; 80053; 82010; 82550; 83605; 83690; 83880; 84484; 85025; 87040; 87149 ×2; 87804 ×2; 93005; U0003; U0005; 36415; 81003; 81015; 96361; 96374; J2405

== ENCOUNTER 2022-06-27 23:14 | Emergency (ER) | payer OTHER | END 2022-06-28 00:08 | disposition home or self-care (01) | LOC: ERS 23:14 | DX: R53.1 Weakness (principal); I12.9 Hypertensive chronic kidney disease with stage 1 through stage 4 chronic kidney disease, or unspecified chronic kidney disease; N18.9 Chronic kidney disease, unspecified; J18.9 Pneumonia, unspecified organism; E11.51 Type 2 diabetes mellitus with diabetic peripheral angiopathy without gangrene; Z79.01 Long term (current) use of anticoagulants | CPT/HCPCS: 99284 ==

== ENCOUNTER 2022-11-07 08:23 | Outpatient (CLI) | payer OTHER, MEDICAID | END 2022-11-07 08:24 | disposition home or self-care (01) | LOC: ULT 08:23 | PROVIDERS: ATTEND Internal Medicine Nephrology | DX: N17.9 Acute kidney failure, unspecified (principal); I12.9 Hypertensive chronic kidney disease with stage 1 through stage 4 chronic kidney disease, or unspecified chronic kidney disease; N18.4 Chronic kidney disease, stage 4 (severe) | CPT/HCPCS: 76770 ==